=== PATIENT | male | born 1960 | race Caucasian/White ===

== ENCOUNTER → 2020-10-03 10:08 | Outpatient (CLI) | payer OTHER, SELFPAY ==
--- NOTE | 2020-10-03 13:44 | NEURO ---
NCS and/or EMG Patient Report Ordering Doctor: Brinda Solares NP DATE OF SERVICE: 10/03/20 Abdullahi Willis presents for electrodiagnostic testing of the upper limbs. He reports occasional numbness and tingling in the arms. Electrodiagnostic findings: Right median motor nerve demonstrates prolonged distal latency with normal amplitude and reduced conduction velocity. Left median motor nerve demonstrates normal distal latency, amplitude and conduction velocity. Right ulnar motor nerve demonstrates normal distal latency and amplitude with normal conduction. Normal left ulnar motor response. Normal median and ulnar F waves. Prolonged median sensory latency at the wrist bilaterally. On needle EMG, all muscles tested in the upper limb showed no evidence of denervation with normal motor unit action potentials. Electrodiagnostic assessment: This is an abnormal study in the upper limbs. 1. Electrodiagnostic findings demonstrate bilateral median mononeuropathy. This is consistent with a mild left carpal tunnel syndrome and a mild to moderate right carpal tunnel syndrome. If there are any further questions, please do not hesitate to contact me
== END ==
PROVIDERS: PCP Nurse Practitioner; Referring Provider Nurse Practitioner; Visit Provider Nurse Practitioner
DX: R20.2 Paresthesia of skin (principal)
CPT/HCPCS: 95886; 95913

== ENCOUNTER 2021-11-21 06:58 | Outpatient (RCR) | payer BC, SELFPAY ==
--- NOTE | 2021-11-21 08:00 | HP.PTEVAL_ITS ---
Patient's Visit Information SIERRA PATEL is a 61 year old M referred to Physical Therapy by [facility] Jhaveri with a diagnosis of Left Knee Pain. Date of Evaluation: 11/21/21 Physical Therapist: Josy Nuno DPT - Visit Plan Frequency: 1x/Week Duration: 4 Weeks Plan: Focus on HEP for flexibility, LE and core strength/stabilization and flex- mod of e-stim and. HEP Given IE: TKE, Heel slide, SLR, Hamstring Stretch - Subjective Patient reports that he was walking in the yard on Thursday- he stepped in a hole- big pop and has had medial knee pain. Feels its getting better with ice and Ibuprofen- compression sleeve. No radiating pain. Describes the pain now as dull and achy. No N/T. Worst: 9/10 Agg: turning the knee, getting up after sitting for a long period of time. Best: 0/10 Eases: ice, ibuprofen, compression sleeve, keeping moving. Sleep: wakes him up if he lays on it wrong. 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 He has managed to continue his ADL's but its been slower and more challenging. No exercise. Had x-rays which were negative. No medication or injections. Has an apt to see Dr. Smart next week. PMHx: HTN. Meds: amlodipine - Objective Posture: FH, RS- can correct with verbal cues but does not maintain. Gait: slightly antalgic decrease heel strike on left with ER of the hip Stairs: asc/desc 8 recip with a single hand rail- poor control with decent- not smooth with ascend HR SLS: 15 sec with increased muscular activation HR/TR: able without LOB and no pain. Sensation: WFL to gross touch bilateral. ROM: Knee: 0- 120 degrees with pain at end range flexion. Strength: Core: fair plus, Hip: 4+/5, Knee: 4+/5 pain testing flexion Ankle: 5/5. Flex: HS: mod, Gastroc: mod. Palpation: tender to medial joint line - Special Tests R Knee Edgar - Meniscus: Positive R Knee Valgus - MCL: Positive - Goals Goal 1:: Patient will be I with HEP and progression Goal Time Frame: 4-6 Weeks Goal 2:: Patient will ambulate >300 feet with a normalized gait pattern Goal Time Frame: 4-6 Weeks Goal 3:: Patient will return to all normal ADL's without pain Goal Time Frame: 4-6 Weeks - Rehabilitation Potential Physical Therapy Diagnosis: Patient presents with hypomobility- he has decreased pain free ROM, LE and core strength/stabilization, flex and muscular endurance leading to abnormal gait and increased pain with ADL's - Anticipated Interventions Patient/Client Instruction: Educate patient on: Benefits of Fitness Program Therapeutic Exercise to Include: Strength training, Endurance training, Balance training, Coordination, Agility training, Body mechanics, Postural training, Flexibilty training, Gait and locomotor training, Neuromotor development, Dynamic Lumbar Stabilization, Scapular Strength/Stabilization For the Purpose of:: To improve muscle performance and motor function TENS: Yes Cryotherapy (ice pack, ice massage): Yes Thermo therapy (hot pack): Yes Ultrasound (thermal/non thermal): Yes Thank you for the opportunity to evaluate your patient. For Medicare and Medicare HMO plans, please review the plan of care and approve it. It will need to be FAXED BACK to us at [phone] for Medicare purposes. For Medicare only, by signing this I certify the plan of care. Please let me know if there are questions or concerns regarding this plan of care. Physician Signature: Date:
--- NOTE | 2022-04-17 16:15 | HP.PT.NRP ---
SIERRA PATEL was seen in my office for initial evaluation on 11/21/21. The following Plan of Care was established for this patient: Initial Frequency: 1x/Week Initial Duration: 4 Weeks Patient/Client Instruction: Educate patient on: Benefits of Fitness Program Therapeutic Exercise to Include: Strength training, Endurance training, Balance training, Coordination, Agility training, Body mechanics, Postural training, Flexibilty training, Gait and locomotor training, Neuromotor development, Dynamic Lumbar Stabilization, Scapular Strength/Stabilization For the Purpose of:: To improve muscle performance and motor function TENS: Yes Cryotherapy (ice pack, ice massage): Yes Thermo therapy (hot pack): Yes Ultrasound (thermal/non thermal): Yes This patient was last seen in our office . Pertinent comments regarding their Physical therapy will appear below: Patient has not attended PT in over 30 days- appropriate to be d/c and return to MD for further evaluation as needed. At this point I will be discontinuing this patient from physical therapy. I would be happy to see this patient again in the future if found appropriate by the physician. Thank you! RAYMOND FabianT
== END 2021-11-21 19:00 | disposition home or self-care (01) ==
LOC: PT 06:58
PROVIDERS: PCP Nurse Practitioner; Referring Provider Nurse Practitioner; Visit Provider Nurse Practitioner
DX: M25.562 Pain in left knee (principal)
CPT/HCPCS: 97014; 97161; G0283

== ENCOUNTER 2022-08-21 04:54 | Observation (INO) | payer BC, SELFPAY ==
[2022-08-21] VITALS (13 sets, daily range): BP systolic 132–186; BP diastolic 81–111; PULSE 64–92; RESP 16–21; TEMP 36.4–36.8; O2SAT 94–98; BMI 35.9; BMI 35.5
--- NOTE | 2022-08-21 05:13 | CT_ITS ---
INDICATION: 61-year-old male with possible aortic dissection. EXAMINATION: CTA CHEST, ABDOMEN AND PELVIS WITH CONTRAST - TECHNIQUE: A CTA of the chest, abdomen, and pelvis is obtained with sagittal and coronal reconstructed MIP views. Three-dimensional surface rendered sequence of the thoracic and abdominal aorta was obtained. A radiation dose optimization technique was used for this scan. 100 mL of Isovue-370. Oral contrast: None. COMPARISON: None. FINDINGS: CT CHEST: THORACIC AORTA: No atheromatous disease, no aneurysmal changes or dissection. ABDOMINAL AORTA: No aneurysm or dissection. No significant atheromatous disease. The iliac arteries are unremarkable. Patent origins of the celiac axis, superior mesenteric artery, single bilateral renal arteries and inferior mesenteric artery. LUNGS: The lungs are well-expanded without acute or chronic changes. No effusions or pneumothorax. MEDIASTINUM: The thyroid gland is normal. No mediastinal or hilar adenopathy. HEART: Heart is normal size. No pericardial effusion. No coronary artery calcifications. CT ABDOMEN AND PELVIS: LIVER: The liver enhances homogeneously. No masses identified. GALLBLADDER: The CBD is normal. Scattered small gallstones. SPLEEN: Normal. PANCREAS: No masses or inflammation. ADRENAL GLANDS: Normal. KIDNEYS AND URETERS: The kidneys both enhance appropriately. There are normal size and shape. No hydronephrosis or nephrolithiasis. No renal masses or cysts. STOMACH: Normal. SMALL BOWEL: No abnormal distention of the small bowel. MESENTERY: No mesenteric inflammation. No ascites. COLON: No significant diverticulosis, masses or inflammation. The colon otherwise is normal. APPENDIX: The appendix is visualized and normal. IVC: Normal. RETROPERITONEUM: No retroperitoneal lymphadenopathy. PELVIC STRUCTURES: Normal bladder. SOFT TISSUES ABDOMEN: The anterior abdominal wall is normal. SOFT TISSUE CHEST: The extrathoracic soft tissues are normal. BONES: No fractures or significant degenerative disease. CT/CTA Chst, Abd, Pel W and/or WO IMPRESSION: Normal contrast-enhanced CT of the chest. Normal contrast-enhanced CT of the abdomen and pelvis. No evidence of thoracic or abdominal aortic dissection. Electronically Signed: Magdaleno Snyder MD at 6:27 EDT Reading Location ID and State: [place] / , Service support ,
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
[2022-08-21] MEDS: Aspirin 81 MG TAB.CHEW 324 MG PO (05:21)
[2022-08-21] MEDS: 0.9% Normal Saline 1,000 ML 999 ML IV (05:21)
[2022-08-21 05:23] LABS: Absolute Lymphocyte Count 1.25 X10^3/uL (0.83-4.51); Absolute Neutrophil Count 6.5 X10^3/uL (2.0-7.7); Basophil# 0.06 X10^3/uL; Basophil% 0.7 % (0-1); Eosinophils% 1.2 % (0-5); Hematocrit 46.6 % (40-54); Hemoglobin 15.8 g/dL (13.0-16.5); Lymphocyte # 1.25 X10^3/ul (0.83-4.51); Lymphocyte % 14.7 % (19-41); Mean Corp Hgb Conc 33.9 g/dL (32-36); Mean Corpuscular Hgb 31.6 pg (27.0-32.0); Mean Corpuscular Volume 93.2 fL (80-94); Mean Platelet Vol. 10.8 fl (6.2-12.0); Monocyte# 0.59 X10^3/uL; Monocyte% 6.9 % (0-10); NRBC Flagged by Analyzer 0 % (0-5); Neutrophil # 6.45 X10^3/uL (2.7-7.7); Neutrophil % 75.9 % (47-70); Platelet Count 188 K/mm3 (150-450); RBC Distribution Width CV 12.9 % (11.6-14.6); RBC Distribution Width SD 44.1 fl (35.1-43.9); White Blood Count 8.5 K/mm3 (4.4-11.0)
[2022-08-21] MEDS: Nitroglycerin SL (ED/IMG/CATH) 0.4 MG TABLET SL ×3 (05:23→05:39)
--- NOTE | 2022-08-21 05:24 | ED.RN ---
in the middle of doing nitro series, wants pt to cat scan now.pt went to ct scan.
[2022-08-21 05:44] LABS: Prothrombin Time (Protime)PT. 12.7 SECONDS (11.7-14.9)
[2022-08-21 05:45] LABS: AST(SGOT) 20 U/L (15-37); Alanine Aminotransfer ALT/SGPT 30 U/L (16-61); Albumin, Serum 4.1 g/dL (3.2-5.0); Alkaline Phosphatase 65 U/L (45-117); Anion Gap 7 (5-15); BUN 17 mg/dL (7-18); BUN/Creat Ratio 18.2 RATIO (10-20); Bilirubin, Direct 0.12 mg/dL (0.00-0.30); Calcium,Total 9.4 mg/dL (8.5-10.1); Chloride 107 mmol/L (98-107); Creatinine, Serum 0.93 mg/dL (0.70-1.30); EST Glomerular Filtration Rate 87 mL/min (>60); Est Glom Filt Rate - Afr Amer 106 mL/min (>60); Estimated Creatinine Clearance 91.55 ml/min; Globulin 3.9 g/dL (2.2-4.2); Glucose 133 mg/dL (74-106); Lipase 98 U/L (73-393); Magnesium 2.1 mg/dL (1.6-2.6); Sodium Level 139 mmol/L (136-145); Troponin-I HS 4 pg/mL (3.0-78.0)
[2022-08-21] MEDS: Ondansetron 4 MG/2 ML Vial IV (05:59)
[2022-08-21] MEDS: HYDROmorphone 1 MG/ML Syringe IV (05:59)
--- NOTE | 2022-08-21 06:52 | US_ITS ---
We are attempting to reach an attending provider to discuss findings. An addendum with communication details will be sent when the communication is complete. STUDY: ABDOMINAL ULTRASOUND - RIGHT UPPER QUADRANT REASON FOR VISIT: Male, 61 years old right quadrant pain. TECHNIQUE: Ultrasound evaluation of the right upper quadrant was performed with real-time and static miramontes-scale imaging. TECHNICAL QUALITY: Adequate. COMPARISON: CT chest, abdomen and pelvis August 21, 2022. FINDINGS: Liver: The liver measures 10.2 cm. There is increased echogenicity consistent with fatty infiltration. The bile ducts are within normal limits. There is hepatic color flow. The direction of portal flow is hepatopetal. There is no demonstrated mass lesion. Gallbladder: Normal distended gallbladder. The gallbladder wall measures 5 mm. There is a negative sonographic Levine''s sign. There is trace pericholecystic fluid as per the player manager worksheet. There are multiple echogenic structures within the gallbladder, consistent with multiple gallstones. Common Bile Duct (C.B.D.): The common bile duct measures 5 mm. Pancreas: Pancreas not well-visualized due to overlying bowel gas. Right Kidney: Normal size of the right kidney. The right kidney measures 12.7 cm. Normal renal cortex. The right cortex measures 2 cm. There is no demonstrated renal mass or cyst. There is no right hydronephrosis. US/Gallbladder IMPRESSION: Cholelithiasis, gallbladder wall thickening and trace pericholecystic fluid. These findings suggest acute cholecystitis in the proper clinical setting. Pancreas not well-visualized. Electronically Signed: Magdaleno Snyder MD at 7:48 EDT Reading Location ID and State: [id number] / , Service support ,
[2022-08-21 07:42] LABS: Troponin-I HS 5 pg/mL (3.0-78.0)
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
[2022-08-21] MEDS: Ciprofloxacin 400 MG/200 ML BAG 200 MG IV ×2 (08:46→21:18)
[2022-08-21] MEDS: metroNIDAZOLE 500 MG/100 ML BAG 100 MG IV ×3 (10:17→21:17)
[2022-08-21] MEDS: 0.9% Normal Saline 1,000 ML 120 ML IV ×2 (10:19→21:25)
[2022-08-21] MEDS: amLODIPine 5 MG Tablet PO (21:17)
[2022-08-22] VITALS (16 sets, daily range): BP systolic 129–150; BP diastolic 74–100; PULSE 67–97; RESP 16–18; TEMP 36.5–37.2; O2SAT 92–97; BMI 35.5
[2022-08-22 04:55] LABS: Absolute Lymphocyte Count 1.36 X10^3/uL (0.83-4.51); Absolute Neutrophil Count 6.1 X10^3/uL (2.0-7.7); Basophil# 0.07 X10^3/uL; Basophil% 0.8 % (0-1); Eosinophil# 0.27 X10^3/uL; Eosinophils% 3.1 % (0-5); Hematocrit 43.2 % (40-54); Hemoglobin 14.4 g/dL (13.0-16.5); Lymphocyte # 1.36 X10^3/ul (0.83-4.51); Lymphocyte % 15.7 % (19-41); Mean Corp Hgb Conc 33.3 g/dL (32-36); Mean Corpuscular Hgb 31.9 pg (27.0-32.0); Mean Corpuscular Volume 95.6 fL (80-94); Mean Platelet Vol. 10.4 fl (6.2-12.0); Monocyte# 0.85 X10^3/uL; Monocyte% 9.8 % (0-10); NRBC Flagged by Analyzer 0 % (0-5); Neutrophil # 6.06 X10^3/uL (2.7-7.7); Platelet Count 166 K/mm3 (150-450); RBC Distribution Width CV 13.1 % (11.6-14.6); RBC Distribution Width SD 46.3 fl (35.1-43.9); Red Blood Count 4.52 M/mm3 (4.6-6.2); White Blood Count 8.7 K/mm3 (4.4-11.0)
[2022-08-22 05:22] LABS: AST(SGOT) 14 U/L (15-37); Alanine Aminotransfer ALT/SGPT 26 U/L (16-61); Albumin, Serum 3.1 g/dL (3.2-5.0); Alkaline Phosphatase 53 U/L (45-117); Anion Gap 3 (5-15); BUN 9 mg/dL (7-18); BUN/Creat Ratio 10.4 RATIO (10-20); Bilirubin, Direct 0.15 mg/dL (0.00-0.30); Calcium,Total 8.2 mg/dL (8.5-10.1); Chloride 110 mmol/L (98-107); Creatinine, Serum 0.86 mg/dL (0.70-1.30); EST Glomerular Filtration Rate 95 mL/min (>60); Est Glom Filt Rate - Afr Amer 115 mL/min (>60); Estimated Creatinine Clearance 99.01 ml/min; Globulin 3.3 g/dL (2.2-4.2); Glucose 105 mg/dL (74-106); Potassium 4.2 mmol/L (3.5-5.1); Protein, Total 6.4 g/dL (6.4-8.2); Sodium Level 139 mmol/L (136-145)
--- NOTE | 2022-08-22 05:37 | EKG12_ITS ---
Test Reason : pre-procedure Blood Pressure : / mmHG Vent. Rate : 069 BPM Atrial Rate : 069 BPM P-R Int : 144 ms QRS Dur : 082 ms QT Int : 378 ms P-R-T Axes : 005 010 032 degrees QTc Int : 405 ms Normal sinus rhythm Normal ECG When compared with ECG of 21-AUG-2022 04:55, MANUAL COMPARISON REQUIRED, DATA IS UNCONFIRMED Confirmed by MARIA ANTONIA ACOSTA, JACKIE ([id number]), editor news LUCIEN MONAHAN ([id number]) on 08/25/2022 2:09:28 PM Referred By: Confirmed By:JACKIE EM MD
[2022-08-22] MEDS: metroNIDAZOLE 500 MG/100 ML BAG 100 MG IV (05:52)
--- NOTE | 2022-08-22 05:55 | EKG12_ITS ---
Test Reason : cp Blood Pressure : / mmHG Vent. Rate : 075 BPM Atrial Rate : 093 BPM P-R Int : 160 ms QRS Dur : 082 ms QT Int : 378 ms P-R-T Axes : 053 013 039 degrees QTc Int : 422 ms Sinus rhythm with marked sinus arrhythmia Otherwise normal ECG Confirmed by LOLITA ACOSTA, JHON ([id number]), make up editor LUCIEN MONAHAN ([id number]) on 08/25/2022 9:38:27 AM Referred By: Confirmed By:JHON MCHUGH MD
[2022-08-22] MEDS: 0.9% Normal Saline 1,000 ML 120 ML IV ×2 (07:26→14:44)
[2022-08-22] MEDS: 0.9% Normal Saline 1,000 ML 15 ML IV (09:09)
--- NOTE | 2022-08-22 09:45 | GALL_PTH ---
PATIENT: TROY PATEL LOC: PCU U#:[id number] AGE/SX: 61/M ROOM: [facility] RE08/21/[address]: Dr. Zunilda Anaya MD : [id number] BED: 1 DIS: 08/22/2022 SPEC #: [id number] RECD: 08/22/22 13:07 STATUS: CLIVE JASSI #: [id number] POP: 08/22/22 09:[address]: Zunilda Anaya DEPT: SURGICAL PATHOLOGY RECD BY: Shasha Kasper Tissues: Gallbladder, NOS Procedures: Surgery Specimen Level III HEADER OPERATION: Laparoscopic cholecystectomy with IOC PRE-OP DIAGNOSIS: Acute cholecystitis, cholelithiasis TISSUE SUBMITTED: Gallbladder MICROSCOPIC DIAGNOSIS Gallbladder, cholecystectomy: Acute and chronic cholecystitis with denudation of mucosa and cholelithiasis. AM:ravin 08/26/2022 MICROSCOPIC DESCRIPTION Slides are reviewed. GROSS DESCRIPTION Received is one container labeled with the patient's name and designated gallbladder. The specimen consists of a previously opened gallbladder measuring 8.5 x 4.5 x 2 cm. The external surface is smooth and glistening. Focally, it is granular, hemorrhagic and contains cautery artifact. The lumen of the gallbladder contains yellow-green mucoid bile and multiple chalky yellow, multifaceted calculi ranging in size from 0.1 to 1.2 cm. The mucosa is bile-stained and without any mass lesions. The gallbladder wall averages 0.2 cm in thickness and is free of mass lesions. Crochet Beader sections of the gallbladder and the cystic duct at margin of resection are submitted in one cassette. / AM:ravin 08/25/2022 TC:2 CPT: 22159
--- NOTE | 2022-08-22 09:45 | RAD_ITS ---
CLINICAL HISTORY: Male, 61 years old. Cholecystectomy PROCEDURE: CHOLANGIOGRAM - intraoperative CONSENT: Informed consent obtained SEDATION: General FLUOROSCOPY TIME (if supplied): (0:07) minutes/seconds Placement of the catheter and the procedure were performed by: Dr. Anaya Fluoroscopy was provided by Jeff Velasquez, who was present in the room time of the procedure. TECHNIQUE: (All elements of maximal sterile barrier technique followed, including US elements as applicable) After removal of the gallbladder, the cystic duct remnant was cannulized, and contrast injected in a retrograde manner. There is normal filling of the cystic duct, common bile duct, distal pancreatic duct and biliary radicles. There is free flow of contrast into the duodenum without extravasation of contrast outside the lumen of the biliary tree. RAD/Cholangiogram/ O R,Initial IMPRESSION: Normal intraoperative cholangiogram Electronically Signed: Ankit Maldonado MD at 11:02 EDT ,
[2022-08-22] MEDS: Ciprofloxacin 400 MG/200 ML BAG 200 MG IV (10:05)
[2022-08-22] MEDS: Bupivacaine 0.25% 30 ML Vial (11:15)
--- NOTE | 2022-08-22 11:23 | PCM.OPRPT ---
Report of Operation Date of Procedure: 08/22/22 Pre-Operative Diagnosis: Acute cholecystitis, cholelithiasis Post-Operative Diagnosis: Same Surgery/Procedure Performed:: Laparoscopic cholecystectomy with cholangiograms Surgeon: Zunilda Anaya drawer in plain loom: Nigel Purvis Type of Anesthesia: General/Supplemental Anesthesiologist: Brad Wu Special Medications: Cipro 400 mg IV every 12, Flagyl 500 mg IV every 8 for acute cholecystitis on the floor Specimen's removed: Gallbladder and stones Estimated Blood Loss (mL): 20 cc Description of Procedure: Indications: this is a 61 year-old male who developed abdominal pain/nausea/vomiting and on workup was found to have acute cholecystitis, cholelithiasis, with a normal common bile duct. Laparoscopic cholecystectomy was elected. Description procedure: The patient was placed on operating table in supine position. A timeout was completed verifying correct patient, procedure, site, position and special equipment prior to beginning procedure. General Anesthesia was induced. The abdomen was prepped and draped in usual sterile fashion. An incision was made in the natural skin line above the umbilicus. The fascia was elevated and incised. The peritoneum was elevated and incised. Entry into the peritoneum was confirmed visually and no bowel was noted in the vicinity of the incision. Polanco trocar was placed. The abdomen was insufflated with carbon dioxide to a pressure of 12-15 mmHg. Patient tolerated insufflation well. The laparoscope was then inserted and abdomen inspected. No injuries from initial trocar placement were noted. Additional trochars were then inserted in the following locations 5 mm trocar in the epigastrium and 2 more 5 mm trochars along the right costal margin. The abdomen was inspected, the gallbladder was underneath an adhesion of omentum. The table is placed in reverse Trendelenburg position with the right side up. The adhesions between the gallbladder and omentum were lysed sharply. The dome of the gallbladder was grasped with atraumatic grasper passed through the lateral port and retracted over the dome of the liver. The gallbladder was noted to be inflamed. Infundibulum was then grasped with atraumatic grasper through the midclavicular port and retracted to the right lower quadrant. This maneuver exposed Calot's triangle. The peritoneum overlying the gallbladder infundibulum was then incised and cystic duct and artery identified and circumferentially dissected. Brown catheter was used for cholangiograms. The cholangiogram showed good filling of the common bile duct into the duodenum with no filling defects, good filling of the right and left bile ducts as well. The cystic duct and artery were then doubly clipped and divided close to the gallbladder. The gallbladder then dissected from its peritoneal attachments by electrocautery. Hemostasis was checked and the gallbladder and contained stones were removed using the endoscopic retrieval bag through the umbilical port, which required slight enlargement to remove due to gallstones. The gallbladder is passed off table as specimen. The gallbladder fossa was irrigated with saline and hemostasis obtained. There is no evidence of bleeding from the gallbladder fossa or cystic artery leakage of bile from the cystic duct stump. Secondary trochars removed under direct vision. No bleeding was noted the trocar sites. The laparoscope was withdrawn and umbilical trocar removed. The abdomen was allowed to collapse. The fascia of the 12 mm trocar was closed with 2 [id number]-bq-[id number] 0 Vicryl suture. The skin was closed with sutures of 4-0 Monocryl and Steri-Strips. The patient was extubated. The patient tolerated procedure well and was taken to the postanesthesia care unit in stable condition. Complications none
--- NOTE | 2022-08-22 11:27 | DCINST_ITS ---
Discharge Instructions Diet Discharge Diet: Light diet - advance as tolerated Activity Discharge Activity: May Not Drive (while taking narcotic pain medications.) May shower in (days): 1 Lifting Restrictions: no lifting >20 lbs x 2 wks, no strenuous exercise for 4 wks Dressing / Incision Call your doctor if your incision/area has: Continuous Slow Oozing, Sudden Increased Bleeding, Increased Pain/ Swelling, Increased Redness, Foul Smelling Discharge and Swelling at the incision site Call your doctor if you observe: Fever of 101 or Higher Remove Dressing in: 2 days Cleanse incision/area with: Soap & Water Additional Dressing/Incision Instructions:: Steri-Strips will fall off in 7 to 10 days, if they do not fall off okay to remove after 10 days. Follow Up Care Please Follow Up With: Zunilda Anaya MD When: Call the office for a follow-up appointment 2 weeks; after 5 PM and on the weekends call [phone] with any concerns. Test Results: Test results from this visit will be discussed in further detail at your follow- up appointment, if applicable. Discharge Plan Admission Admit Date/Time: 08/21/22 08:15 Attending Provider: Zunilda Anaya Primary Care Provider: TODD FLOYD Discharge Orders/Prescriptions Prescriptions: New oxycodone-acetaminophen [Percocet] 5-325 mg tablet 1 tab PO Q6H PRN (Reason: pain) 3 Days Qty: 12 0RF ondansetron 4 mg tablet,disintegrating 4 mg PO TID PRN (Reason: nausea and vomiting) Qty: 21 0RF Continued amlodipine 5 mg tablet 5 mg PO DAILY Referrals / Follow Up: TODD FLOYD [Other] Brinda Solares PERSONAL COMPUTER NETWORK ANALYST, PERSONAL COMPUTER NETWORK ANALYST-C [Non-Staff] - Zunilda Anaya MD [Med Staff - Active Staff] - Disposition Disposition (needs filled in before D/C Order can be placed): Home, Self Care
[2022-08-22] MEDS: Pantoprazole Sodium 40 MG Tablet PO (14:43)
--- NOTE | 2022-08-22 16:02 | NURSING ---
Pt up and voided in toilet and ambulated in room without difficulty.
[2022-08-22] MEDS: Acetaminophen 325 MG Tablet 650 MG PO (16:24)
== END 2022-08-22 11:28 | disposition home or self-care (01) ==
LOC: ED 08:28 → PCU 08:29
PROVIDERS: Admitting Provider Surgery; Emergency Provider Emergency Medicine; Visit Provider Surgery
PROC: (CPT 47610; principal; 2022-08-22 09:25)
DX: K80.12 Calculus of gallbladder with acute and chronic cholecystitis without obstruction (principal); I10 Essential (primary) hypertension; Z79.899 Other long term (current) drug therapy; I49.8 Other specified cardiac arrhythmias; R07.89 Other chest pain; M54.9 Dorsalgia, unspecified
CPT/HCPCS: 47563; 36415; 71275; 74174; 74300; 76000; 76705; 80048; 80076; 83690; 83735; 84484; 85025; 85610; 85730; 86850; 86870; 86880; 86900; 86901; 88304; 93005; 96361; 96365; 96366; 96368; 96375; 99218; 99251; 99285; J7030; A4216; G0378; G0463; J0744; J2405

== ENCOUNTER → 2024-09-26 | Outpatient (CLI) | payer BC, SELFPAY | END | disposition home or self-care (01) | PROVIDERS: PCP Nurse Practitioner Family; Referring Provider Nurse Practitioner Family; Visit Provider Nurse Practitioner Family | DX: R06.83 Snoring (principal) | CPT/HCPCS: 95806 ==

== ENCOUNTER → 2024-10-28 | Outpatient (CLI) | payer BC, SELFPAY ==
--- NOTE | 2024-10-28 06:51 | CT_ITS ---
EXAM: CT CHEST WITHOUT INTRAVENOUS CONTRAST CLINICAL INDICATION: greater than 20 pack yr history, quit 5 years ago TECHNIQUE: Helically acquired images were obtained of the chest without intravenous contrast. This CT exam was performed using one or more of the following dose reduction techniques: automated exposure control, adjustment of the mA and/or kV according to patient size, and/or use of iterative reconstruction technique. RADIATION DOSE: CTDIvol = 4.02 mGy, DLP = 157.03 mGy-cm COMPARISON: CTA chest abdomen pelvis 08/21/2022. FINDINGS: LUNGS AND PLEURAL SPACES: Unremarkable. No mass. No consolidation or edema. No pleural effusion or thickening. No pneumothorax. HEART: Unremarkable. Heart size is normal. No pericardial effusion. No significant coronary artery calcifications. MEDIASTINUM: Unremarkable. No mediastinal or hilar adenopathy. Esophagus is unremarkable. No hiatal hernia. THYROID: There is a 3 cm nodule arising from the lower pole of the right thyroid gland. BONES/JOINTS: Unremarkable. No suspicious lytic or blastic abnormality. VASCULATURE: Unremarkable. Thoracic aorta is non-dilated. CT/Low Dose CT Lung Screening IMPRESSION: 1. There is a 3 cm nodule arising from the lower pole of the right thyroid gland. ACR White Paper guidelines (Montero JK, et al. JACR 2015;12(2):143-50) suggest further evaluation with thyroid ultrasound. 2. Otherwise unremarkable low-dose CT of the chest, no pulmonary nodules. ACR Lung CT Screening Reporting And Data System (Lung-RADS) score: 1S - Additional clinically significant or potentially clinically significant findings are described. Recommend continued annual screening with a low-dose CT (LDCT) in 12 months. Electronically Signed: Rodney Morfin MD at 16:29 EST ,
== END | disposition home or self-care (01) ==
PROVIDERS: PCP Nurse Practitioner Family; Referring Provider Nurse Practitioner Family; Visit Provider Nurse Practitioner Family
DX: Z87.891 Personal history of nicotine dependence (principal)
CPT/HCPCS: 71271

== ENCOUNTER → 2024-11-12 | Outpatient (CLI) | payer BC, SELFPAY ==
--- NOTE | 2024-11-12 07:47 | US_ITS ---
EXAM: US SOFT TISSUES HEAD AND NECK, THYROID CLINICAL INDICATION: 3 cm nodule seen LDCT -- thyroid US TECHNIQUE: Hernandez scale and color doppler imaging was performed of the thyroid gland. COMPARISON: No relevant prior studies available. FINDINGS: LEFT THYROID LOBE: Left thyroid lobe measures 5.7 x 2.3 x 1.8 cm. Multinodular appearance. Dominant central 2.4 cm nodule. This nodule is solid or almost completely solid, hyperechoic or isoechoic, [id number], smoothly marginated and contains no echogenic foci. TI-RADS points: 3. TI-RADS category: TR3. This nodule is mildly suspicious. Recommend follow-up thyroid ultrasounds in one year. Several similar smaller nodules are noted within the left thyroid lobe. RIGHT THYROID LOBE: Right thyroid lobe measures 8.1 x 2.8 x 3.2 cm. Multinodular echotexture. Dominant nodule measuring 2.2 cm in maximum diameter. This nodule is solid or almost completely solid, hyperechoic or isoechoic, [id number], smoothly marginated and contains no echogenic foci. TI-RADS points: 3. TI-RADS category: TR3. This nodule is mildly suspicious. Recommend follow-up thyroid ultrasounds at 1 year. Incompletely visualized additional nodule arises from the lower pole of the right thyroid lobe measuring at least 3.3 cm diameter and having similar appearance to the prior nodule. TI-RADS points: 3. TI-RADS category: TR3. This nodule is mildly suspicious. Recommend FNA evaluation. ISTHMUS: Normal. No thyroid nodules are present. US/Thyroid IMPRESSION: Findings consistent with multinodular goiter. Dominant lesion arising from the lower pole of the right thyroid lobe warrants FNA due to its of large size. Electronically Signed: Galo Gracia MD at 13:44 EST ,
== END | disposition home or self-care (01) ==
LOC: US 07:45
PROVIDERS: PCP Nurse Practitioner Family; Referring Provider Nurse Practitioner Family; Visit Provider Nurse Practitioner Family
DX: E04.1 Nontoxic single thyroid nodule (principal)
CPT/HCPCS: 76536

== ENCOUNTER → 2025-02-24 | Outpatient (CLI) | payer BC, SELFPAY | END | disposition home or self-care (01) | LOC: LABSPEC 12:15 | PROVIDERS: PCP Nurse Practitioner Family; Referring Provider Nurse Practitioner Family; Visit Provider Nurse Practitioner Family | DX: E87.5 Hyperkalemia (principal) | CPT/HCPCS: 84132 ==

== ENCOUNTER → 2025-10-30 | Outpatient (CLI) | payer MEDICARE, OTHER, SELFPAY ==
--- NOTE | 2025-10-30 07:14 | CT_ITS ---
PROCEDURE: LOW DOSE CT LUNG SCREENING 10/30/2025 REASON FOR EXAM: PREVIOUS SMOKER TECHNIQUE: Procedure Code: [id number] Modality: CT Procedure: LOW DOSE CT LUNG SCREENING Coronal and Sagittal reconstruction series were provided. One or more dose reduction techniques were used (e.g., Automated exposure control, adjustment of the mA and/or kV according to patient size, use of iterative reconstruction technique). REFERENCE LINK: [employer] Lung-RADS RADIATION DOSE SUMMARY: DLP: 1117.39 mGycm COMPARISON: Low-dose CT lung screening 10/28/2024 FINDINGS: PULMONARY NODULES: (Only nodules >3mm are reported) Nodules described below are on series 2 unless otherwise specified. Pulmonary Nodules: No suspicious pulmonary nodules Hardware:None available Lymph Nodes:No lymphadenopathy. Heart and Vasculature:The heart is normal in size.The main pulmonary artery and thoracic aorta normal in caliber. Coronary Artery Calcifications: Present Lungs and Airways: Mild dependent atelectasis. The central airways are patent. Pleura:No pneumothorax or pleural effusion. Upper Abdomen:Unremarkable. Bones:No aggressive osseous lesion. Degenerative changes in the thoracic spine. Soft tissues: Asymmetrically enlarged right thyroid gland appears to extend to mediastinum. CT/Low Dose CT Lung Screening IMPRESSION: No suspicious pulmonary nodules. Coronary artery calcification (CAC) is absent. Lung-RADS Category: 1 NEGATIVE. RECOMMEND 12-MONTH SCREENING LDCT. Other Significant Findings: Asymmetrically enlarged right thyroid gland. If no t already evaluated, recommend thyroid ultrasound for further evaluation. Reading Location: [id number]
--- OUTSIDE RECORDS SUMMARY | 2025-10-30 07:19 | XMS RPT_ITS | CCD ---
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 ERFORMED BY: CB [facility] Zndyrp[address] [facility]in [place] [id number] PSA TOTAL (RFLX FREE) [id number] ([id number])Ordered By: Unit Operator on 08-13-2023 Prostate specific Ag [Mass/Vol] 1.3 ng/mL Normal 0.0-4.0 [facility] Internal Medicine; [facility] Work Phone: Comment on above: Julia ECLIA methodol ogy. .According to the [place] [employer], Serum PSA shoulddecrease and remain at undetectable levels after radicalprostatectomy. The AUA defines biochemical recurrence as an initialPSA value 0.2 ng/mL or greater followed by a subsequent confirmatoryPSA value 0.2 ng/mL or greater.Values obtained with different assay methods or kits cannot be usedinterchangeably. Results cannot be interpreted as absolute evidenceof the presence or absence of malignant disease. PATIENT WAS FASTINGP ERFORMED BY: Rethink Fwiqfg1839 [facility] [id number] PSA TOTAL (RFLX FREE) [id number] ([id number]) [facility] Normal [facility]; [facility] Work Phone: Comment on above: The percent free PSA is performed on a reflex basis only when thetotal PSA is between 4.0 and 10.0 ng/mL. PATIENT WAS FASTINGP ERFORMED BY: Rethink Jgwvzq9118 [facility] [id number] Absolute lymphocyte counton 08-22-2022 Lymphocytes Auto (Unsp spec) [#/Vol] 1.36 10*3/uL 0.83-4.51 [facility] Work Phone: Basophil percentageon 2021 Basophils/100 WBC (Bld) 0.8 % 0-1 [facility] Work Phone: Bilirubin [Mass/Vol] 0.80 mg/dL 0.20-1.00 [facility] Work Phone: Comment on above: For patients on eltr ombopag therapy, use of Dimension [place] TBIL is not recommended. Chloride [Moles/Vol] 110 mmol/L 98-107 [facility] Work Phone: Eosinophils/100 WBC (Bld) 3.1 % 0-5 [facility] Work Phone: Glucose [Mass/Vol] 105 mg/dL 74-106 [facility] Work Phone: Comment on above: Fasting Glucose resu lt from 100 to 125 mg/dL suggests IMPAIRED HOMEOSTASIS per A.D.A. criteria. Neutrophils (Bld) [#/Vol] 6.1 10*3/uL 2.0-7.7 [facility] Work Phone: Neutrophils/100 WBC (Bld) 70.0 % 47-70 [facility] Work Phone: Potassium [Moles/Vol] 4.2 mmol/L 3.5-5.1 [facility] Work [facility]: Protein [Mass/Vol] 6.4 g/dL 6.4-8.2 [facility] Work Phone: Sodium [Moles/Vol] 139 mmol/L 136-145 [facility] Work Phone: WBC (Bld) [#/Vol] 8.7 10*3/uL 4.4-11.0 [facility] Work Phone: Blood erythrocytes count (nu mber/volume)on 08-22-2022 RBC (Bld) [#/Vol] 4.52 10*6/uL 4.6-6.2 [facility]: Blood hemoglobin measurement (mass/volume)on 08-22-2022 Hemoglobin (Bld) [Mass/Vol] 14.4 g/dL 13.0-16.5 [facility] Work Phone: Blood lymphocytes/100 leukoc yteson 08-22-2022 Lymphocytes/100 WBC (Bld) 15.7 % 19-41 [facility] Work Phone: Blood monocytes/100 leukocyt eson 08-22-2022 Monocytes/100 WBC (Bld) 9.8 % 0-10 [facility] Work Phone: Blood platelet mean volumeon 08-22-2022 Platelet mean volume (Bld) [Entitic vol] 10.4 fL 6.2-12.0 [facility] Work Phone: Determination of erythrocyte mean corpuscular volume (MCV)on 08-22-2022 MCV (RBC) [Entitic vol] 95.6 fL 80-94 [facility] Work Phone: Direct bilirubinon Bilirubin.direct [Mass/Vol] 0.15 mg/dL 0.00-0.30 [facility] Work Phone: Hematocrit Auto (Bld) [Volum e fraction]on 08-22-2022 Hematocrit (Bld) [Volume fraction] 43.2 % 40-54 [facility] Work Phone: Laboratory - Chemistry and C hemistry - challengeon 08-22-2022 ALP [Catalytic activity/Vol] 53 U/L 45-117 [facility] Work Phone: ALT [Catalytic activity/Vol] 26 U/L 16-61 [facility] Work Phone: CO2 [Moles/Vol] 26.0 mmol/L 21.0-32.0 [facility] Work Phone: Globulin (S) [Mass/Vol] 3.3 g/dL 2.2-4.2 [facility] Work Phone: Urea nitrogen/Creatinine [Mass ratio] 10.4 mg/mg 10-20 [facility] Work Phone: Laboratory - Hematology and Cell countson 08-22-2022 Erythrocyte distribution width (RBC) [Entitic vol] 46.3 fL 35.1-43.9 [facility] Work Phone: Erythrocyte distribution width (RBC) [Ratio] 13.1 % 11.6-14.6 [facility] Work Phone: Immature granulocytes/100 WBC (Bld) 0.600 % 0.0-0.9 [facility] Work Phone: Comment on above: IG% - Immature Granu locytes (promyelocytes, myelocytes and metamyelocytes) > 1% indicates that a LEFT SHIFT is Present. MCH (RBC) [Entitic mass] 31.9 pg 27.0-32.0 [facility] Work Phone: Nucleated RBC/100 WBC (Bld) [Ratio] 0 % 0-5 [facility] Work Phone: MCHC Auto (RBC) [Mass/Vol]on 08-22-2022 MCHC (RBC) [Mass/Vol] 33.3 g/dL 32-36 [facility] Work Phone: No Panel Informationon 08-22 Estimated Creatinine Clearance Calc 99.01 ml/min [facility] Work Phone: Estimated GFR (MDRD) Amer 115 mL/min >60 [facility] Work Phone: Comment on above: GFR Calc Estimated GFR (MDRD) Non-Af Amer 95 mL/min >60 [facility] Work Phone: Comment on above: Non- GFR Calc Platelets bldon 08-22-2022 Platelets (Bld) [#/Vol] 166 10*3/uL 150-450 [facility] Work Phone: Serum or plasma albumin saniya urement (mass/volume)on 08-22-2022 Albumin [Mass/Vol] 3.1 g/dL 3.2-5.0 [facility] Work Phone: Serum or plasma calcium saniya urement (mass/volume)on 08-22-2022 Calcium [Mass/Vol] 8.2 mg/dL 8.5-10.1 [facility] Work Phone: Serum or plasma creatinine m easurement (mass/volume)on 08-22-2022 Creatinine [Mass/Vol] 0.86 mg/dL 0.70-1.30 [facility] Work Phone: Comment on above: The validity of the calculated GFR & GFRAA in patients over 70 years has not been determined. Clinical correlation is essential. Serum or plasma urea nitroge n measurement (mass/volume)on 08-22-2022 Urea nitrogen [Mass/Vol] 9 mg/dL 7-18 [facility] Work Phone: Thin prep Papanicolaou smear with manual screeningon 08-22-2022 Thin prep Papanicolaou smear with manual screening 14 U/L 15-37 [facility] Work Phone: Thin prep Papanicolaou smear with manual screening 3 5-15 [facility] Work Phone: INR in Blood by Coagulation assayon 08-21-2022 INR Coag (Bld) [Relative time] 1.0 {INR} [facility] Work Phone: Laboratory - Chemistry and C hemistry - challengeon 08-21-2022 Lipase [Catalytic activity/Vol] 98 U/L 73-393 [facility] Work Phone: Magnesium [Mass/Vol] 2.1 mg/dL 1.6-2.6 [facility] Work Phone: Laboratory - Coagulationon 1 aPTT Coag (Bld) [Time] 37.0 s 24.1-36.2 [facility] Work Phone: PT Coag (PPP) [Time] 12.7 s 11.7-14.9 [facility] Work Phone: No Panel Informationon 08-21 Troponin I High Sensitivity 5 pg/mL 3.0-78.0 [facility] Work Phone: Comment on above: Please Note: New Gypsy t Units and Gender Specific Reference Ranges. For more information see Policy Stat Procedure [place] High Sensitivity Troponin (TNIH) and attachments. CBC, Platelets & Auto Diff ( [id number])Ordered By: Unit Operator on 08-08-2022 Basophils (Bld) [#/Vol] 0.1 10*3/uL Normal 0.0-0.2 [facility]; [facility] Work Phone: Comment on above: PATIENT WAS FASTINGP ERFORMED BY: Datahug70 [facility]plexNorth Carolina Specialty Hospital [id number] Basophils/100 WBC (Bld) 1 % Normal [facility]; [facility] Work Phone: Comment on above: PATIENT WAS FASTINGP ERFORMED BY: Datahug[address] [place] [id number] Eosinophils (Bld) [#/Vol] 0.3 10*3/uL Normal 0.0-0.4 [facility]; [facility] Work Phone: Comment on above: PATIENT WAS FASTINGP ERFORMED BY: [facility] Bwgynp8[address]bl[address] [place] [id number] Eosinophils/100 WBC (Bld) 5 % Normal [facility]; [facility] Work Phone: Comment on above: PATIENT WAS FASTINGP ERFORMED BY: [facility] Wcexig[address] [facility] [place] [id number] Erythrocyte distribution width (RBC) [Ratio] 13.3 % Normal 11.6-15.4 [facility]; [facility] Work Phone: Comment on above: PATIENT WAS FASTINGP ERFORMED BY: [facility] Arnkzv8230 [address] RoadNovant Health Kernersville Medical Centerin [place] [id number] Hematocrit (Bld) [Volume fraction] 45.3 % Normal 37.5-51.0 [facility]; [facility] Work Phone: Comment on above: PATIENT WAS FASTINGP ERFORMED BY: LabK[facility] Center6[address] [facility] [id number] Hemoglobin (Bld) [Mass/Vol] 15.3 g/dL Normal 13.0-17.7 [facility]; [facility] Work Phone: Comment on above: PATIENT WAS FASTINGP ERFORMED BY: [facility] Pkolwj[address] [facility]in [place] [id number] Immature granulocytes (Bld) [#/Vol] 0.0 10*3/uL Normal 0.0-0.1 [facility]; [facility] Work Phone: Comment on above: PATIENT WAS FASTINGP ERFORMED BY: Lab[facility] Crxyey9479 [address] RoadNovant Health Kerners[facility] Centerin [place] [id number] Immature granulocytes/100 WBC (Bld) 0 % Normal [facility]; [facility] Work Phone: Comment on above: PATIENT WAS FASTINGP ERFORMED BY: [facility] Jbwcwg2685 [address] Roadblin [place] [id number] Lymphocytes (Bld) [#/Vol] 1.4 10*3/uL Normal 0.7-3.1 [facility]; [facility] Work Phone: Comment on above: PATIENT WAS FASTINGP ERFORMED BY: BRANDYN [facility] Xrzoyt1108 [address] RoadDublin [place] [id number] Lymphocytes/100 WBC (Bld) 24 % Normal [facility]; [facility] Work Phone: Comment on above: PATIENT WAS FASTINGP ERFORMED BY: CB [facility] Xjhbxk8439 [address] RoadDublin [place] [id number] MCH (RBC) [Entitic mass] 31.9 pg Normal 26.6-33.0 [facility]; [facility] Work Phone: Comment on above: PATIENT WAS FASTINGP ERFORMED BY: CB [facility] Qhxldi8655 [address] RoadDublin [place] [id number] MCHC (RBC) [Mass/Vol] 33.8 g/dL Normal 31.5-35.7 [facility] prehensive Internal Medicine; [facility] Work Phone: Comment on above: PATIENT WAS FASTINGP ERFORMED BY: BRANDYN [facility] Dfepbg1345 [address] RoadDublin [place] [id number] MCV (RBC) [Entitic vol] 94 fL Normal 79-97 [facility]; [facility] Work Phone: Comment on above: PATIENT WAS FASTINGP ERFORMED BY: BRANDYN [facility] Isvspt6463 [address] RoadDublin [place] [id number] Monocytes (Bld) [#/Vol] 0.5 10*3/uL Normal 0.1-0.9 [facility]; [facility] Work Phone: Comment on above: PATIENT WAS FASTINGP ERFORMED BY: CB [facility] Yoanyi5797 [address] RoadDublin [place] [id number] Monocytes/100 WBC (Bld) 9 % Normal [facility]; [facility] Work Phone: Comment on above: PATIENT WAS FASTINGP ERFORMED BY: CB [facility] Aocrge6286 [address] RoadDublin [place] [id number] Neutrophils (Bld) [#/Vol] 3.7 10*3/uL Normal 1.4-7.0 [facility]; [facility] Work Phone: Comment on above: PATIENT WAS FASTINGP ERFORMED BY: BRANDYN Labcorula Upuebd0523 [address] RoadDublin [place] [id number] Neutrophils/100 WBC (Bld) 61 % Normal [facility]; [facility] Work Phone: Comment on above: PATIENT WAS FASTINGP ERFORMED BY: BRANDYN [facility] Eqfkoy6173 [address] RoadDublin [place] [id number] Platelets (Bld) [#/Vol] 181 10*3/uL Normal 150-450 [facility]; [facility] Work Phone: Comment on above: PATIENT WAS FASTINGP ERFORMED BY: BRANDYN Labcorula Trxthp4737 [address] RoadDublin [place] [id number] RBC (Bld) [#/Vol] 4.80 10*6/uL Normal 4.14-5.80 [facility] Internal Medicine; [facility] Work Phone: Comment on above: PATIENT WAS FASTINGP ERFORMED BY: BRANDYN Labcorula Rkvysr8442 [address] RoadDublin [place] [id number] WBC (Bld) [#/Vol] 6.0 10*3/uL Normal 3.4-10.8 [facility] Internal Medicine; [facility] Work Phone: Comment on above: PATIENT WAS FASTINGP ERFORMED BY: BRANDYN Labmakayla Iaovth7523 [address] RoadDublin [place] [id number] LIPID PANEL ([id number])Ordered B y: Unit Operator on 08-08-2022 Cholesterol [Mass/Vol] 175 mg/dL Normal 100-199 [facility] Internal Medicine; [facility] Work Phone: Comment on above: PATIENT WAS FASTINGP ERFORMED BY: BRANDYN [facility] Jdnkgk5844 [address] RoadDublin [place] [id number] Cholesterol in HDL [Mass/Vol] 35 mg/dL Abnormal [facility]; [facility] Work Phone: Comment on above: PATIENT WAS FASTINGP ERFORMED BY: BRANDYN [facility] Mlxzsz0808 [address] RoadDublin [place] [id number] Triglyceride [Mass/Vol] 135 mg/dL Normal 0-149 [facility]; [facility] Work Phone: Comment on above: PATIENT WAS FASTINGP ERFORMED BY: BRANDYN Labcorula FoleyPbwkxv[address] [facility]in [place] [id number] LIPID PANEL (97880) 24 mg/dL Normal 5-40 [facility] Internal Medicine; [facility] Work Phone: Comment on above: PATIENT WAS FASTINGP ERFORMED BY: BRANDYN [facility] Bloycx0826 [address] [facility] [id number] LIPID PANEL (92554) 116 mg/dL Abnormal 0-99 [facility] Internal Medicine; [facility] Work Phone: Comment on above: PATIENT WAS FASTINGP ERFORMED BY: BRANDYN Labcorula FoleyOjrblj5240 [address] [facility] [id number] LIPID PANEL (91137) 3.3 {ratio} Normal 0.0-3.6 [facility] Internal Medicine; [facility] Work Phone: Comment on above: LDL/HDL Ratio Men Wo men 1/2 Avg.Risk 1.0 1.5 Avg.Risk 3.6 3.2 2X Avg.Risk 6.2 5.0 3X Avg.Risk 8.0 6.1 PATIENT WAS FASTINGP ERFORMED BY: BRANDYN Labcor[facility] Jvuvbe7111 [facility] [id number] METABOLIC PANEL, COMPREHENSI VE (67825)Ordered By: Unit Operator on 08-08-2022 Albumin [Mass/Vol] 4.1 g/dL Normal 3.8-4.8 [facility] Internal Medicine; [facility] Work Phone: Comment on above: PATIENT WAS FASTINGP ERFORMED BY: BRANDYN [facility] Rqwbse[address] [facility]in [place] [id number] Albumin/Globulin [Mass ratio] 1.6 {ratio} Normal 1.2-2.2 [facility] Internal Medicine; [facility] Work Phone: Comment on above: PATIENT WAS FASTINGP ERFORMED BY: BRANDYN [facility] Swqsff9451 [address] RoadDublin [place] [id number] ALP [Catalytic activity/Vol] 60 U/L Normal 44-121 [facility]; [facility] Work Phone: Comment on above: PATIENT WAS FASTINGP ERFORMED BY: BRANDYN [facility] Zwdlih1937 [address] RoadDublin [place] [id number] ALT [Catalytic activity/Vol] 17 U/L Normal 0-44 [facility]; [facility] Work Phone: Comment on above: PATIENT WAS FASTINGP ERFORMED BY: CB [facility] Yqcpnb9058 [address] RoadDublin [place] [id number] AST [Catalytic activity/Vol] 18 U/L Normal 0-40 [facility]; [facility] Work Phone: Comment on above: PATIENT WAS FASTINGP ERFORMED BY: BRANDYN [facility] Vltast3831 [address] RoadDublin [place] [id number] Bilirubin [Mass/Vol] 0.3 mg/dL Normal 0.0-1.2 [facility]; [facility] Work Phone: Comment on above: PATIENT WAS FASTINGP ERFORMED BY: BRANDYN [facility] Podxmv9134 [address] RoadDublin [place] [id number] Calcium [Mass/Vol] 9.1 mg/dL Normal 8.6-10.2 [facility] Internal Medicine; [facility] Work Phone: Comment on above: PATIENT WAS FASTINGP ERFORMED BY: [facility] Gaeoeh0056 [address] RoadDublin [place] [id number] Chloride [Moles/Vol] 106 mmol/L Normal 96-106 [facility]; [facility] Work Phone: Comment on above: PATIENT WAS FASTINGP ERFORMED BY: CB [facility] Opeqzd2082 [address] RoadDublin [place] [id number] CO2 [Moles/Vol] 24 mmol/L Normal 20-29 [facility] Internal Medicine; [facility] Work Phone: Comment on above: PATIENT WAS FASTINGP ERFORMED BY: CB [facility] Hucwkq5813 [address] RoadDublin [place] [id number] Creatinine [Mass/Vol] 1.01 mg/dL Normal 0.76-1.27 [facility] prehensive Internal Medicine; [facility] Work Phone: Comment on above: PATIENT WAS FASTINGP ERFORMED BY: BRANDYN [facility] Tsvtnm6277 [facility] [id number] GFR/1.73 sq M.predicted among non-blacks MDRD (S/P/Bld) [Vol rate/Area] 85 mL/min/{1.73_m2} Normal Comprehensiv e Internal Medicine; [facility] Work Phone: Comment on above: PATIENT WAS FASTINGP ERFORMED BY: [facility] Pulvla8049 [facility] [id number] Globulin (S) [Mass/Vol] 2.5 g/dL Normal 1.5-4.5 [facility] Internal Medicine; [facility] Work Phone: Comment on above: PATIENT WAS FASTINGP ERFORMED BY: [facility] Fpnica1324 [facility] [id number] Glucose [Mass/Vol] 101 mg/dL Abnormal 70-99 [facility] Internal Medicine; [facility] Work Phone: Comment on above: Please note refere nce interval change PATIENT WAS FASTINGP ERFORMED BY: [facility] Qcatbb4858 [facility] [id number] Potassium [Moles/Vol] 4.8 mmol/L Normal 3.5-5.2 [facility] prehensive Internal Medicine; [facility] Work Phone: Comment on above: PATIENT WAS FASTINGP ERFORMED BY: [facility] Dxoxiy7244 [facility] [id number] Protein [Mass/Vol] 6.6 g/dL Normal 6.0-8.5 [facility] Internal Medicine; [facility] Work Phone: Comment on above: PATIENT WAS FASTINGP ERFORMED BY: [facility] Phmefl9914 [address] [facility] [id number] Sodium [Moles/Vol] 141 mmol/L Normal 134-144 [facility] Internal Medicine; [facility] Work Phone: Comment on above: PATIENT WAS FASTINGP ERFORMED BY: BRANDYN Labjoaquimrula Gstvja[address] RevenewNovant Health Kern[facility] Centerin [place] [id number] Urea nitrogen [Mass/Vol] 15 mg/dL Normal 8-27 [facility]; [facility] Work Phone: Comment on above: PATIENT WAS FASTINGP ERFORMED BY: BRANDYN [facility] Ksxcut0229 [address] [facility] [id number] Urea nitrogen/Creatinine [Mass ratio] 15 mg/mg Normal 10-24 [facility]; [facility] Work Phone: Comment on above: PATIENT WAS FASTINGP ERFORMED BY: BRANDYN Labmakayla Kxkkms8383 [facility]yman[facility] [id number] MICROALBUMINOrdered By: Syst em Tank Stave Assembler on 08-08-2022 Albumin DL <= 20 mg/L (U) [Mass/Vol] 3.1 ug/mL Normal [facility]; [facility] Work Phone: Comment on above: PATIENT WAS FASTINGP ERFORMED BY: BRANDYN Labmakayla Ojsyhm5781 [address] [facility] [id number] Albumin/Creatinine (U) [Mass ratio] 2 {mg/g_creat} Normal 0-29 [facility]; [facility] Work Phone: Comment on above: Normal: 0 - 29 Moder ately increased: 30 - 300 Severely increased: >300 PATIENT WAS FASTINGP ERFORMED BY: BRANDYN Labjoaquim Jgdukh1290 [address] [facility] [id number] Creatinine (U) [Mass/Vol] 128.4 mg/dL Normal [facility]; [facility] Work Phone: Comment on above: PATIENT WAS FASTINGP ERFORMED BY: BRANDYN Labcorula Qobxmb[address] [facility]in [place] [id number] PSA (PROSTATE SPECIFIC ANTIG EN) (V76.44)Ordered By: Unit Operator on 08-08-2022 Prostate specific Ag [Mass/Vol] 1.1 ng/mL Normal 0.0-4.0 [facility]; [facility] Work Phone: Comment on above: Julia ECLIA methodol ogy. .According to the [place] [employer], Serum PSA shoulddecrease and remain at undetectable levels after radicalprostatectomy. The AUA defines biochemical recurrence as an initialPSA value 0.2 ng/mL or greater followed by a subsequent confirmatoryPSA value 0.2 ng/mL or greater.Values obtained with different assay methods or kits cannot be usedinterchangeably. Results cannot be interpreted as absolute evidenceof the presence or absence of malignant disease. PATIENT WAS FASTINGP ERFORMED BY: CB [facility] Bgdenm5505 [address] RoadDublin [place] [id number] TSH (THYROID STIMULATING HOR MUNA) ([id number])Ordered By: Unit Operator on 08-08-2022 TSH Qn 1.210 {uIU/mL} Normal 0.450-4.500 Comprehen sive Internal Medicine; [facility] Work Phone: Comment on above: PATIENT WAS FASTINGP ERFORMED BY: CB [facility] Atgyrm5795 [address] RoadDublin [place] [id number] URINALYSIS, W/ MICRO ([id number]) Ordered By: Unit Operator on 08-08-2022 Appearance (U) Clear Normal Comprehens [facility] Internal Medicine; [facility] Work Phone: Comment on above: PATIENT WAS FASTINGP ERFORMED BY: CB [facility] Hqqnwf2116 [address] RoadDublin [place] [id number] Bilirubin Ql (U) Negative Normal Comprehe nsive Internal Medicine; [facility] Work Phone: Comment on above: PATIENT WAS FASTINGP ERFORMED BY: CB [facility] Qwgxmm7641 [address] RoadDublin [place] [id number] Color (U) Yellow Normal [facility]; [facility] Work Phone: Comment on above: PATIENT WAS FASTINGP ERFORMED BY: CB [facility] Osfdkj8763 [address] RoadDublin [place] [id number] Glucose Ql (U) Negative Normal Comprehens car[facility]; [facility] Work Phone: Comment on above: PATIENT WAS FASTINGP ERFORMED BY: [facility] Yocnhq4609 [address] RoadDublin [place] [id number] Hemoglobin Ql (U) Negative Normal Compreh ensive Internal Medicine; [facility] Work Phone: Comment on above: PATIENT WAS FASTINGP ERFORMED BY: BRANDYN [facility] Spjrsz6926 [address] RoadDublin [place] [id number] Ketones Ql (U) Negative Normal Comprehens [facility]; [facility] Work Phone: Comment on above: PATIENT WAS FASTINGP ERFORMED BY: BRANDYN [facility] Mxuekm0775 [address] RoadDublin [place] [id number] Leukocyte esterase Test strip Ql (U) Negative Normal [facility]; [facility] Work Phone: Comment on above: PATIENT WAS FASTINGP ERFORMED BY: BRANDYN [facility] Ogrkyj3473 [address] RoadDublin [place] [id number] Microscopic observation LM Nom (Urine sed) MICRON Normal [facility]; [facility] Work Phone: Comment on above: Microscopic follows if indicated. PATIENT WAS FASTINGP ERFORMED BY: BRANDYN [facility] Fybuwh9406 [address] RoadDublin [place] [id number] Microscopic observation LM Nom (Urine sed) See below: Normal [facility]; [facility] Work Phone: Comment on above: Microscopic was jasmine cated and was performed. PATIENT WAS FASTINGP ERFORMED BY: BRANDYN [facility] Tpbjwx5266 [address] RoadDublin [place] [id number] Nitrite Ql (U) Negative Normal Comprehens [facility]; [facility] Work Phone: Comment on above: PATIENT WAS FASTINGP ERFORMED BY: [facility] Axldia4215 [address] RoadDublin [place] [id number] pH (U) 6.0 [pH] Normal 5.0-7.5 [facility]; [facility] Work Phone: Comment on above: PATIENT WAS FASTINGP ERFORMED BY: [facility] Uyibja9961 [address] RoadDublin [place] [id number] Protein Ql (U) Negative Normal Comprehens [facility]; [facility] Work Phone: Comment on above: PATIENT WAS FASTINGP ERFORMED BY: BRANDYN Labmakayla Olivares[address] [facility] [id number] Specific gravity (U) [Rel density] 1.018 1 Normal 1.005-1.030 [facility]; [facility] Work Phone: Comment on above: PATIENT WAS FASTINGP ERFORMED BY: BRANDYN [facility] Xpurrq1923 [address] [facility] [id number] Urobilinogen (U) [Mass/Vol] 0.2 mg/dL Normal 0.2-1.0 [facility]; [facility] Work Phone: Comment on above: PATIENT WAS FASTINGP ERFORMED BY: BRANDYN [facility] Lzhgza3890 [address] [facility] [id number] CBC with auto diff ([id number])Or dered By: Unit Operator on 08-07-2021 Basophils (Bld) [#/Vol] 0.1 10*3/uL Normal 0.0-0.2 [facility]; [facility] Work Phone: Comment on above: PATIENT WAS FASTINGP ERFORMED BY: BRANDYN LabJoaquim Klahjt[address] [facility]in [place] [id number] Basophils/100 WBC (Bld) 1 % Normal [facility]; [facility] Work Phone: Comment on above: PATIENT WAS FASTINGP ERFORMED BY: BRANDYN [facility] Ejkegz0514 [address] [facility] [id number] Eosinophils (Bld) [#/Vol] 0.1 10*3/uL Normal 0.0-0.4 [facility]; [facility] Work Phone: Comment on above: PATIENT WAS FASTINGP ERFORMED BY: BRANDYN [facility] Mtfumq[address] [facility]blin [place] [id number] Eosinophils/100 WBC (Bld) 2 % Normal [facility]; [facility] Work Phone: Comment on above: PATIENT WAS FASTINGP ERFORMED BY: BRANDYN [facility] Shuzrt7882 [facility] [id number] Erythrocyte distribution width (RBC) [Ratio] 13.1 % Normal 11.6-15.4 [facility]; [facility] Work Phone: Comment on above: PATIENT WAS FASTINGP ERFORMED BY: BRANDYN Olivares6370 [facility] [id number] Hematocrit (Bld) [Volume fraction] 47.0 % Normal 37.5-51.0 [facility]; [facility] Work Phone: Comment on above: PATIENT WAS FASTINGP ERFORMED BY: [facility] Ahapft5025 [facility] [id number] Hemoglobin (Bld) [Mass/Vol] 15.7 g/dL Normal 13.0-17.7 [facility]; [facility] Work Phone: Comment on above: PATIENT WAS FASTINGP ERFORMED BY: Leonides Gegudg7135 [facility] [id number] Immature granulocytes (Bld) [#/Vol] 0.0 10*3/uL Normal 0.0-0.1 [facility]; [facility] Work Phone: Comment on above: PATIENT WAS FASTINGP ERFORMED BY: Leonides Jnhxce6369 [facility] [id number] Immature granulocytes/100 WBC (Bld) 1 % Normal [facility]; [facility] Work Phone: Comment on above: PATIENT WAS FASTINGP ERFORMED BY: [facility] Rmqozh7182 [facility] [id number] Lymphocytes (Bld) [#/Vol] 1.4 10*3/uL Normal 0.7-3.1 [facility]; [facility] Work Phone: Comment on above: PATIENT WAS FASTINGP ERFORMED BY: [facility] Oyfztw5769 [facility] [id number] Lymphocytes/100 WBC (Bld) 21 % Normal [facility]; [facility] Work Phone: Comment on above: PATIENT WAS FASTINGP ERFORMED BY: [facility] Cdimig2531 [address] RoadDublin [place] [id number] MCH (RBC) [Entitic mass] 31.1 pg Normal 26.6-33.0 [facility]; [facility] Work Phone: Comment on above: PATIENT WAS FASTINGP ERFORMED BY: [facility] Amiwau2341 [address] RoadDublin [place] [id number] MCHC (RBC) [Mass/Vol] 33.4 g/dL Normal 31.5-35.7 [facility] prehensive Internal Medicine; [facility] Work Phone: Comment on above: PATIENT WAS FASTINGP ERFORMED BY: [facility] Jhnojb7728 [address] RoadDublin [place] [id number] MCV (RBC) [Entitic vol] 93 fL Normal 79-97 [facility]; [facility] Work Phone: Comment on above: PATIENT WAS FASTINGP ERFORMED BY: [facility]6[address]Dublin [place] [id number] Monocytes (Bld) [#/Vol] 0.5 10*3/uL Normal 0.1-0.9 [facility]; [facility] Work Phone: Comment on above: PATIENT WAS FASTINGP ERFORMED BY: [facility] Vqhgmh7792 [address] RoadDublin [place] [id number] Monocytes/100 WBC (Bld) 8 % Normal [facility]; [facility] Work Phone: Comment on above: PATIENT WAS FASTINGP ERFORMED BY: [facility]6370 [address]Dublin [place] [id number] Neutrophils (Bld) [#/Vol] 4.3 10*3/uL Normal 1.4-7.0 [facility] Internal [facility]; [facility] Work Phone: Comment on above: PATIENT WAS FASTINGP ERFORMED BY: [facility] Eseydd1540 [address] RoadDublin [place] [id number] Neutrophils/100 WBC (Bld) 67 % Normal [facility]; [facility] Work Phone: Comment on above: PATIENT WAS FASTINGP ERFORMED BY: BRANDYN [facility] Xwfqfd6004 [address] RoadDublin [place] [id number] Platelets (Bld) [#/Vol] 200 10*3/uL Normal 150-450 [facility]; [facility] Work Phone: Comment on above: PATIENT WAS FASTINGP ERFORMED BY: CB [facility] Yutbxw2739 [address] RoadDublin [place] [id number] RBC (Bld) [#/Vol] 5.05 10*6/uL Normal 4.14-5.80 [facility]; [facility] Work Phone: Comment on above: PATIENT WAS FASTINGP ERFORMED BY: CB [facility] Nfjtqc7066 [address] RoadDublin [place] [id number] WBC (Bld) [#/Vol] 6.5 10*3/uL Normal 3.4-10.8 [facility] Internal Medicine; [facility] Work Phone: Comment on above: PATIENT WAS FASTINGP ERFORMED BY: BRANDYN [facility] Emftvv9156 [address] RoadDublin [place] [id number] LIPID PANEL ([id number])Ordered B y: Unit Operator on 08-07-2021 Cholesterol [Mass/Vol] 178 mg/dL Normal 100-199 [facility]; [facility] Work Phone: Comment on above: PATIENT WAS FASTINGP ERFORMED BY: CB [facility] Oxztcz4438 [address] RoadDublin [place] [id number] Cholesterol in HDL [Mass/Vol] 34 mg/dL Abnormal [facility]; [facility] Work Phone: Comment on above: PATIENT WAS FASTINGP ERFORMED BY: CB [facility] Zjkvvb6913 [address] RoadDublin [place] [id number] Triglyceride [Mass/Vol] 127 mg/dL Normal 0-149 [facility]; [facility] Work Phone: Comment on above: PATIENT WAS FASTINGP ERFORMED BY: CB [facility] Jtfkte4492 [address] RoadDublin [place] [id number] LIPID PANEL (31323) 23 mg/dL Normal 5-40 [facility]; [facility] Work Phone: Comment on above: PATIENT WAS FASTINGP ERFORMED BY: BRANDYN LabCorula Iallyw[address] [facility]in [place] [id number] LIPID PANEL (76728) 121 mg/dL Abnormal 0-99 [facility]; [facility] Work Phone: Comment on above: PATIENT WAS FASTINGP ERFORMED BY: BRANDYN [facility] Jorjin8[address] [facility] [id number] LIPID PANEL (12777) 3.6 {ratio} Normal 0.0-3.6 [facility]; [facility] Work Phone: Comment on above: LDL/HDL Ratio Men Wo men 1/2 Avg.Risk 1.0 1.5 Avg.Risk 3.6 3.2 2X Avg.Risk 6.2 5.0 3X Avg.Risk 8.0 6.1 PATIENT WAS FASTINGP ERFORMED BY: BRANDYN [facility] Hylyct6525 [facility] [id number] METABOLIC PANEL, COMPREHENSI VE (89877)Ordered By: Unit Operator on 08-07-2021 Albumin [Mass/Vol] 4.4 g/dL Normal 3.8-4.9 [facility] Internal Medicine; [facility] Work Phone: Comment on above: PATIENT WAS FASTINGP ERFORMED BY: BRANDYN [facility] Ovujmj2588 [facility] [id number] Albumin/Globulin [Mass ratio] 1.8 {ratio} Normal 1.2-2.2 [facility] Internal Medicine; [facility] Work Phone: Comment on above: PATIENT WAS FASTINGP ERFORMED BY: BRANDYN [facility] Wrvmue[address] [facility]in [place] [id number] ALP [Catalytic activity/Vol] 52 U/L Normal 44-121 [facility]; [facility] Work Phone: Comment on above: Please note refere nce interval change PATIENT WAS FASTINGP ERFORMED BY: CB [facility] Mqvibp8783 [facility] [id number] ALT [Catalytic activity/Vol] 14 U/L Normal 0-44 [facility]; [facility] Work Phone: Comment on above: PATIENT WAS FASTINGP ERFORMED BY: BRANDYN Filiberto Olivares6370 [address]Dublin [place] [id number] AST [Catalytic activity/Vol] 17 U/L Normal 0-40 [facility]; [facility] Work Phone: Comment on above: PATIENT WAS FASTINGP ERFORMED BY: BRANDYN [facility] Rvznoj8598 [address] RoadDublin [place] [id number] Bilirubin [Mass/Vol] 0.5 mg/dL Normal 0.0-1.2 Comp rehensive Internal Medicine; [facility] Work Phone: Comment on above: PATIENT WAS FASTINGP ERFORMED BY: BRANDYN LabMin[facility] Rodpal4451 [address] Roadblin [place] [id number] Calcium [Mass/Vol] 9.3 mg/dL Normal 8.6-10.2 [facility] Internal Medicine; [facility] Work Phone: Comment on above: PATIENT WAS FASTINGP ERFORMED BY: BRANDYN LabMineral [facility] Kmuomh3723 [address] RoadDublin [place] [id number] Chloride [Moles/Vol] 105 mmol/L Normal 96-106 Comp rehensive Internal Medicine; [facility] Work Phone: Comment on above: PATIENT WAS FASTINGP ERFORMED BY: [facility] Uzzswx5841 [address] RoadDublin [place] [id number] CO2 [Moles/Vol] 23 mmol/L Normal 20-29 [facility]; [facility] Work Phone: Comment on above: PATIENT WAS FASTINGP ERFORMED BY: BRANDYN [facility] Wtzaom6306 [address] Roadblin [place] [id number] Creatinine [Mass/Vol] 0.92 mg/dL Normal 0.76-1.27 [facility] prehensive Internal Medicine; [facility] Work Phone: Comment on above: PATIENT WAS FASTINGP ERFORMED BY: [facility] Yzoovd4352 [address] RoadDublin [place] [id number] GFR/1.73 sq M.predicted among blacks CKD-EPI (S/P/Bld) [Vol rate/Area] 104 mL/min/1.73 Normal [facility]; [facility] Work Phone: Comment on above: [facility] currently reports eGFR in compliance with the current recommendations of the National Kidney Foundation. [facility] will update reporting as new guidelines are published from the NKF-ASN Task force. PATIENT WAS FASTINGP ERFORMED BY: [facility]6370 [facility] [id number] GFR/1.73 sq M.predicted among non-blacks CKD-EPI (S/P/Bld) [Vol rate/Area] 90 mL/min/1.73 Normal [facility]; [facility] Work Phone: Comment on above: PATIENT WAS FASTINGP ERFORMED BY: [facility]6370 [facility] [id number] Globulin (S) [Mass/Vol] 2.5 g/dL Normal 1.5-4.5 [facility]; [facility] Work Phone: Comment on above: PATIENT WAS FASTINGP ERFORMED BY: [facility]6370 [facility] [id number] Glucose [Mass/Vol] 102 mg/dL Abnormal 65-99 [facility] Internal Medicine; [facility] Work Phone: Comment on above: PATIENT WAS FASTINGP ERFORMED BY: [facility]6370 [facility] [id number] Potassium [Moles/Vol] 4.4 mmol/L Normal 3.5-5.2 [facility] prehensive Internal Medicine; [facility] Work Phone: Comment on above: PATIENT WAS FASTINGP ERFORMED BY: [facility]6370 [facility] [id number] Protein [Mass/Vol] 6.9 g/dL Normal 6.0-8.5 [facility] Internal [facility]; [facility] Work Phone: Comment on above: PATIENT WAS FASTINGP ERFORMED BY: CB [facility] Qknhxz0120 [address] RoadDublin [place] [id number] Sodium [Moles/Vol] 140 mmol/L Normal 134-144 [facility] Internal [facility]; [facility] Work Phone: Comment on above: PATIENT WAS FASTINGP ERFORMED BY: CB [facility] Cysbll6832 [address] RoadDublin [place] [id number] Urea nitrogen [Mass/Vol] 14 mg/dL Normal 8-27 [facility]; [facility] Work Phone: Comment on above: PATIENT WAS FASTINGP ERFORMED BY: CB [facility] Fmyrcw8032 [address] RoadDublin [place] [id number] Urea nitrogen/Creatinine [Mass ratio] 15 mg/mg Normal 10-24 [facility]; [facility] Work Phone: Comment on above: PATIENT WAS FASTINGP ERFORMED BY: CB [facility] Clsksu5103 [address] RoadDublin [place] [id number] PSA (PROSTATE SPECIFIC ANTIG EN) (V76.44)Ordered By: Unit Operator on 08-07-2021 Prostate specific Ag [Mass/Vol] 1.4 ng/mL Normal 0.0-4.0 [facility]; [facility] Work Phone: Comment on above: [employer] ECLIA methodol ogy. .According to the [place] [employer], Serum PSA shoulddecrease and remain at undetectable levels after radicalprostatectomy. The AUA defines biochemical recurrence as an initialPSA value 0.2 ng/mL or greater followed by a subsequent confirmatoryPSA value 0.2 ng/mL or greater.Values obtained with different assay methods or kits cannot be usedinterchangeably. Results cannot be interpreted as absolute evidenceof the presence or absence of malignant disease. PATIENT WAS FASTINGP ERFORMED BY: CB [facility] Kfwbpi7032 [address] RoadDublin [place] [id number] TSH ([id number])Ordered By: PPDaie m Tank Stave Assembler on 08-07-2021 TSH Qn 0.721 {uIU/mL} Normal 0.450-4.500 [facility] Internal Medicine; [facility] Work Phone: Comment on above: PATIENT WAS FASTINGP ERFORMED BY: BRANDYN Olivares6370 [address]Dublin [place] [id number] URINALYSIS, W/ MICRO ([id number]) Ordered By: Unit Operator on 08-07-2021 Appearance (U) Clear Normal Comprehens carmina [facility]; [facility] Work Phone: Comment on above: PATIENT WAS FASTINGP ERFORMED BY: BRANDYN Olivares6370 [address]Dublin [place] [id number] Bilirubin Ql (U) Negative Normal Comprehe nsive Internal Medicine; [facility] Work Phone: Comment on above: PATIENT WAS FASTINGP ERFORMED BY: BRANDYN Olivares6370 [address]Dublin [place] [id number] Color (U) Yellow Normal [facility]; [facility] Work Phone: Comment on above: PATIENT WAS FASTINGP ERFORMED BY: BRANDYN Olivares6370 [address]Dublin [place] [id number] Glucose Ql (U) Negative Normal Comprehens carmina [facility]; [facility] Work Phone: Comment on above: PATIENT WAS FASTINGP ERFORMED BY: BRANDYN Olivares6370 [address]Dublin [place] [id number] Hemoglobin Ql (U) Negative Normal Compreh ensive Internal Medicine; [facility] Work Phone: Comment on above: PATIENT WAS FASTINGP ERFORMED BY: BRANDYN Olivares6[address] [place] [id number] Ketones Ql (U) Negative Normal Comprehens carmina [facility]; [facility] Work Phone: Comment on above: PATIENT WAS FASTINGP ERFORMED BY: BRANDYN Foleylin6370 [address] RoadDublin [place] [id number] Leukocyte esterase Test strip Ql (U) Negative Normal [facility]; [facility] Work Phone: Comment on above: PATIENT WAS FASTINGP ERFORMED BY: BRANDYN Foleylin6370 [address] RoadDublin [place] [id number] Microscopic observation LM Nom (Urine sed) MICRON Normal [facility]; [facility] Work Phone: Comment on above: Microscopic follows if indicated. PATIENT WAS FASTINGP ERFORMED BY: BRANDYN [facility] Imlsnr4099 [address] RoadDublin [place] [id number] Microscopic observation LM Nom (Urine sed) See below: Normal [facility]; [facility] Work Phone: Comment on above: Microscopic was jasmine cated and was performed. PATIENT WAS FASTINGP ERFORMED BY: CB [facility] Oyekul4936 [address] RoadDublin [place] [id number] Nitrite Ql (U) Negative Normal Comprehens carmina [facility]; [facility] Work Phone: Comment on above: PATIENT WAS FASTINGP ERFORMED BY: BRANDYN [facility] Azbaes[address]82 [address] [facility] [place] [id number] pH (U) 8.0 [pH] Abnormal 5.0-7.5 [facility]; [facility] Work Phone: Comment on above: PATIENT WAS FASTINGP ERFORMED BY: BRANDYN [facility] Aewzvs6681 [address] [facility] HospitalD[place] [id number] Protein Ql (U) Trace Normal Comprehens carmina [facility]; [facility] Work Phone: Comment on above: PATIENT WAS FASTINGP ERFORMED BY: BRANDYN [facility] Wevzwd3746 [address] [facility] [id number] Specific gravity (U) [Rel density] 1.021 1 Normal 1.005-1.030 [facility]; [facility] Work Phone: Comment on above: PATIENT WAS FASTINGP ERFORMED BY: [facility] Eljksj0378 [address] [facility] HospitalD[facility] [place] [id number] Urobilinogen (U) [Mass/Vol] 0.2 mg/dL Normal 0.2-1.0 [facility]; [facility] Work Phone: Comment on above: PATIENT WAS FASTINGP ERFORMED BY: [facility] Zuvkaj[address] [facility] Hospitalblin [place] [id number] LIPID PANEL ([id number])Ordered B y: Unit Operator on 07-30-2020 Cholesterol [Mass/Vol] 169 mg/dL Normal 100-199 [facility] Work Phone: Comment on above: PATIENT WAS FASTINGP ERFORMED BY: BRANDYN Olivares6370 [facility] [id number] Cholesterol in HDL [Mass/Vol] 40 mg/dL Normal [facility] Work Phone: Comment on above: PATIENT WAS FASTINGP ERFORMED BY: BRANDYN Foleylin6370 [facility] [id number] Cholesterol in LDL/Cholesterol in HDL [Mass ratio] 2.8 {ratio} Normal 0.0-3.6 [facility] Work Phone: Comment on above: LDL/HDL Ratio Men Wo men 1/2 Avg.Risk 1.0 1.5 Avg.Risk 3.6 3.2 2X Avg.Risk 6.2 5.0 3X Avg.Risk 8.0 6.1 PATIENT WAS FASTINGP ERFORMED BY: BRANDYN Foleylin6370 [facility] [id number] Triglyceride [Mass/Vol] 84 mg/dL Normal 0-149 [facility] Work Phone: Comment on above: PATIENT WAS FASTINGP ERFORMED BY: BRANDYN Foleylin6370 [facility] [id number] LIPID PANEL (40468) 113 mg/dL Abnormal 0-99 [facility] Work Phone: Comment on above: PATIENT WAS FASTINGP ERFORMED BY: BRANDYN Coyle Gbwiqf1724 [facility] [id number] LIPID PANEL (36286) 16 mg/dL Normal 5-40 [facility] Work Phone: Comment on above: PATIENT WAS FASTINGP ERFORMED BY: BRANDYN Foleylin6370 [facility] [id number] LIPID PANEL (03165) 2.8 {ratio} Normal 0.0-3.6 Comp [facility]; [facility] Work Phone: Comment on above: LDL/HDL Ratio Men Wo men 1/2 Avg.Risk 1.0 1.5 Avg.Risk 3.6 3.2 2X Avg.Risk 6.2 5.0 3X Avg.Risk 8.0 6.1 PATIENT WAS FASTINGP ERFORMED BY: BRANDYN LabMakayla FoleyRbwpjh1786 [address] RoadDublin [place] [id number] Metabolic Panel, Comprehensi ve ([id number])Ordered By: Unit Operator on 07-30-2020 Albumin [Mass/Vol] 4.3 g/dL Normal 3.8-4.9 [facility] Internal Medicine Work Phone: Comment on above: PATIENT WAS FASTINGP ERFORMED BY: BRANDYN LabMakayla FoleyXwhnpl[address] [facility]in [place] [id number] Albumin/Globulin [Mass ratio] 1.8 {ratio} Normal 1.2-2.2 [facility] Work Phone: Comment on above: PATIENT WAS FASTINGP ERFORMED BY: BRANDYN [facility]Min[facility] Hxxlii[address] [facility]in [place] [id number] ALP [Catalytic activity/Vol] 60 [iU]/L Normal 39-117 [facility] Work Phone: Comment on above: PATIENT WAS FASTINGP ERFORMED BY: BRANDYN CaliMakayla FoleyDfzhbn6362 [facility]in [place] [id number] ALP [Catalytic activity/Vol] 60 U/L Normal 39-117 [facility]; [facility] Work Phone: Comment on above: PATIENT WAS FASTINGP ERFORMED BY: BRANDYN LabMineral [facility] Jbjqcm[address] [facility]in [place] [id number] ALT [Catalytic activity/Vol] 18 [iU]/L Normal 0-44 [facility] Work Phone: Comment on above: PATIENT WAS FASTINGP ERFORMED BY: BRANDYN LabMin[facility] Dxmtug0245 [address] [facility]in [place] [id number] ALT [Catalytic activity/Vol] 18 U/L Normal 0-44 [facility]; [facility] Work Phone: Comment on above: PATIENT WAS FASTINGP ERFORMED BY: BRANDYN [facility] Xmexvl2606 [address] RoadDublin [place] [id number] AST [Catalytic activity/Vol] 21 [iU]/L Normal 0-40 [facility] Internal Medicine Work Phone: Comment on above: PATIENT WAS FASTINGP ERFORMED BY: CB [facility] [id number]Dublin [place] [id number] AST [Catalytic activity/Vol] 21 U/L Normal 0-40 [facility]; [facility] Internal Medicine Work Phone: Comment on above: PATIENT WAS FASTINGP ERFORMED BY: [facility] [id number]Dublin [place] [id number] Bilirubin [Mass/Vol] 0.4 mg/dL Normal 0.0-1.2 [facility] Work Phone: Comment on above: PATIENT WAS FASTINGP ERFORMED BY: [facility] [id number] [address]Dublin [place] [id number] Calcium [Mass/Vol] 9.3 mg/dL Normal 8.7-10.2 [facility] Internal Medicine Work Phone: Comment on above: PATIENT WAS FASTINGP ERFORMED BY: BRANDYN [facility] [id number]Dublin [place] [id number] Chloride [Moles/Vol] 105 mmol/L Normal 96-106 [facility] Internal Medicine Work Phone: Comment on above: PATIENT WAS FASTINGP ERFORMED BY: [facility] [id number] [address]Dublin [place] [id number] CO2 [Moles/Vol] 23 mmol/L Normal 20-29 [facility] Internal Medicine Work Phone: Comment on above: PATIENT WAS FASTINGP ERFORMED BY: [facility] [id number]Dublin [place] [id number] Creatinine [Mass/Vol] 0.88 mg/dL Normal 0.76-1.27 [facility] Internal Medicine Work Phone: Comment on above: PATIENT WAS FASTINGP ERFORMED BY: CB [facility] Rymded[address]Dublin [place] [id number] GFR/1.73 sq M predicted among blacks CKD-EPI (S/P/Bld) [Vol rate/Area] 109 mL/min/1.73 Normal [facility] Work Phone: Comment on above: PATIENT WAS FASTINGP ERFORMED BY: BRANDYN [facility] [id number]Dublin [place] [id number] GFR/1.73 sq M predicted among non-blacks CKD-EPI (S/P/Bld) [Vol rate/Area] 94 mL/min/1.73 Normal [facility] Work Phone: Comment on above: PATIENT WAS FASTINGP ERFORMED BY: [facility] Abwhel20[address]blin [place] [id number] Globulin (S) [Mass/Vol] 2.4 g/dL Normal 1.5-4.5 [facility] Internal Medicine Work Phone: Comment on above: PATIENT WAS FASTINGP ERFORMED BY: [facility] [facility] [id number] Glucose [Mass/Vol] 102 mg/dL Abnormal 65-99 [facility] Internal Medicine Work Phone: Comment on above: PATIENT WAS FASTINGP ERFORMED BY: [facility] [id number] [facility] [id number] Potassium [Moles/Vol] 4.7 mmol/L Normal 3.5-5.2 [facility] Work Phone: Comment on above: PATIENT WAS FASTINGP ERFORMED BY: [facility] [id number] [facility] [place] [id number] Protein [Mass/Vol] 6.7 g/dL Normal 6.0-8.5 [facility] Internal Medicine Work Phone: Comment on above: PATIENT WAS FASTINGP ERFORMED BY: [facility] [id number] [facility] [place] [id number] Sodium [Moles/Vol] 140 mmol/L Normal 134-144 [facility] Internal Medicine Work Phone: Comment on above: PATIENT WAS FASTINGP ERFORMED BY: [facility] CenterNqsxkc2399 [facility] [id number] Urea nitrogen [Mass/Vol] 15 mg/dL Normal 6-24 [facility] Work Phone: Comment on above: PATIENT WAS FASTINGP ERFORMED BY: [facility]6370 [facility] [id number] Urea nitrogen/Creatinine [Mass ratio] 17 mg/mg Normal 9-20 [facility] Work Phone: Comment on above: PATIENT WAS FASTINGP ERFORMED BY: [facility] [id number] [facility] [id number] PSA (PROSTATE SPECIFIC ANTIG EN) (V76.44)Ordered By: Unit Operator on 07-30-2020 Prostate specific Ag [Mass/Vol] 1.6 ng/mL Normal 0.0-4.0 [facility] Internal Medicine Work Phone: Comment on above: Julia ECLIA methodol ogy. .According to the [place] [employer], Serum PSA shoulddecrease and remain at undetectable levels after radicalprostatectomy. The AUA defines biochemical recurrence as an initialPSA value 0.2 ng/mL or greater followed by a subsequent confirmatoryPSA value 0.2 ng/mL or greater.Values obtained with different assay methods or kits cannot be usedinterchangeably. Results cannot be interpreted as absolute evidenceof the presence or absence of malignant disease. PATIENT WAS FASTINGP ERFORMED BY: [facility] [id number] [facility] [id number] TSH (THYROID STIMULATING HOR MUNA) ([id number])Ordered By: Unit Operator on 07-30-2020 TSH Qn 1.020 {uIU/mL} Normal 0.450-4.500 [facility] Internal Medicine Work Phone: Comment on above: PATIENT WAS FASTINGP ERFORMED BY: [facility]6370 [facility] [id number] Vital Signs Date Time Vital Sign Value Performing Clinician Facility 07-14-2025 05:42-0400 Body mass index (BMI) [Ratio] 37.3 kg/m2 Lissa EUCEDA Work Phone: [facility] 07-14-2025 05:42-0400 Body temperature 97.6 [degF] Lissa Meade AEROSPACE QUALITY ENGINEER-C Work Phone: [facility] 07-14-2025 05:42-0400 Body weight 124.73 kg Lissa Stu AEROSPACE QUALITY ENGINEER-C Work Phone: [facility] 07-14-2025 05:42-0400 Diastolic blood pressure 71 mm[Hg] Lissa Meade AEROSPACE QUALITY ENGINEER-C Work Phone: [facility] 07-14-2025 05:42-0400 Heart rate 80 /min Lissa Meade AEROSPACE QUALITY ENGINEER-C Work Phone: [facility] 07-14-2025 05:42-0400 Respiratory rate 20 /min Lissa Meade AEROSPACE QUALITY ENGINEER-C Work Phone: [facility] 07-14-2025 05:42-0400 SaO2% (BldA) [Mass fraction] 96 % Lissadanyell Meade AEROSPACE QUALITY ENGINEER-C Work Phone: [facility] 07-14-2025 05:42-0400 Systolic blood pressure 124 mm[Hg] Lissa Meade AEROSPACE QUALITY ENGINEER-C Work Phone: [facility] 08-07-2023 07:47-0400 Body height 182.88 cm Lissette Ochoa LPN [facility]; [facility] Work Phone: 08-07-2023 07:47-0400 Body mass index (BMI) [Ratio] 37.3 kg/m2 Lissette Ochoa LPN [facility]; [facility] Work Phone: 08-07-2023 07:47-0400 Body surface area Derived from formula 2.44 m2 Lissette Ochoa LPN [facility]; [facility] Work Phone: 08-07-2023 07:47-0400 Body temperature 97.3 [degF] Lissette Ochoa LPN [facility]; [facility] Work Phone: Comment on above: Method: Temporal 08-07-2023 07:47-0400 Body weight 124.74 kg Lissette Slarb WATER MECHANIC [facility]; [facility] Work Phone: 08-07-2023 07:47-0400 Diastolic blood pressure 82 mm[Hg] Lissette Slarb WATER MECHANIC [facility]; [facility] Work Phone: Comment on above: Patient Position: Sitting; Cuff Location : Left Arm; Cuff Size: Standard 08-07-2023 07:47-0400 Heart rate 81 /min Lissette Slarb WATER MECHANIC [facility]; [facility] Work Phone: Comment on above: Pattern: Regular 08-07-2023 07:47-0400 Respiratory rate 16 /min Lissette Slarb WATER MECHANIC [facility]; [facility] Work Phone: Comment on above: Pattern: Unlabored 08-07-2023 07:47-0400 SaO2% (BldA) [Mass fraction] 95 % Lissette Slarb WATER MECHANIC [facility]; [facility] Work Phone: Comment on above: Room air 08-07-2023 07:47-0400 Systolic blood pressure 124 mm[Hg] Lissette Slarb WATER MECHANIC [facility]; [facility] Work Phone: Comment on above: Patient Position: Sitting; Cuff Location : Left Arm; Cuff Size: Standard 02-04-2023 08:11-0400 Body height 182.88 cm Lissette Slarb WATER MECHANIC [facility]; [facility] Work Phone: 02-04-2023 08:11-0400 Body mass index (BMI) [Ratio] 36.08 kg/m2 Lissette Slarb WATER MECHANIC [facility]; [facility] Work Phone: 02-04-2023 08:11-0400 Body surface area Derived from formula 2.41 m2 Lissette Slarb WATER MECHANIC [facility]; [facility] Work Phone: 02-04-2023 08:11-0400 Body temperature 97.8 [degF] Lissette Slarb WATER MECHANIC [facility]; [facility] Work Phone: Comment on above: Method: Temporal 02-04-2023 08:11-0400 Body weight 120.66 kg Lissette Slarb WATER MECHANIC [facility]; [facility] Work Phone: 02-04-2023 08:11-0400 Diastolic blood pressure 84 mm[Hg] Lissette Slarb WATER MECHANIC [facility]; [facility] Work Phone: Comment on above: Patient Position: Sitting; Cuff Location : Left Arm; Cuff Size: Standard 02-04-2023 08:11-0400 Heart rate 83 /min Lissette Slarb WATER MECHANIC [facility]; [facility] Work Phone: Comment on above: Pattern: Regular 02-04-2023 08:11-0400 Respiratory rate 16 /min Lissette Slarb WATER MECHANIC [facility]; [facility] Work Phone: Comment on above: Pattern: Unlabored 02-04-2023 08:11-0400 SaO2% (BldA) [Mass fraction] 94 % Lissette Slarb WATER MECHANIC [facility]; [facility] Work Phone: Comment on above: Room air 02-04-2023 08:11-0400 Systolic blood pressure 146 mm[Hg] Lissette Slarb WATER MECHANIC [facility]; [facility] Work Phone: Comment on above: Patient Position: Sitting; Cuff Location : Left Arm; Cuff Size: Standard 09-09-2022 08:42-0500 Body height 182.88 cm Lissette Slarb WATER MECHANIC [facility]; [facility] Work Phone: 09-09-2022 08:42-0500 Body mass index (BMI) [Ratio] 35.67 kg/m2 Lissette Slarb WATER MECHANIC [facility]; [facility] Work Phone: 09-09-2022 08:42-0500 Body surface area Derived from formula 2.39 m2 Lissette Slarb WATER MECHANIC [facility]; [facility] Work Phone: 09-09-2022 08:42-0500 Body temperature 97.7 [degF] Lissette Slarb WATER MECHANIC [facility]; [facility] Work Phone: 09-09-2022 08:42-0500 Body weight 119.3 kg Lissette Slarb WATER MECHANIC [facility]; [facility] Work Phone: 09-09-2022 08:42-0500 Diastolic blood pressure 86 mm[Hg] Lissette Slarb WATER MECHANIC [facility]; [facility] Work Phone: Comment on above: Patient Position: Sitting; Cuff Location : Left Arm; Cuff Size: Standard 09-09-2022 08:42-0500 Heart rate 92 /min Lissette Slarb WATER MECHANIC [facility]; [facility] Work Phone: Comment on above: Pattern: Regular 09-09-2022 08:42-0500 Respiratory rate 15 /min Lissette Slarb WATER MECHANIC [facility]; [facility] Work Phone: Comment on above: Pattern: Unlabored 09-09-2022 08:42-0500 SaO2% (BldA) [Mass fraction] 95 % Lissette Slarb WATER MECHANIC [facility]; [facility] Work Phone: Comment on above: Room air 09-09-2022 08:42-0500 Systolic blood pressure 142 mm[Hg] Lissette Slarb WATER MECHANIC [facility]; [facility] Work Phone: Comment on above: Patient Position: Sitting; Cuff Location : Left Arm; Cuff Size: Standard 08-22-2022 16:15-0400 Body temperature 98.5 [degF] Dr. Tino Glass Work Phone: [facility] Work Phone: 08-22-2022 16:15-0400 Diastolic blood pressure 85 mm[Hg] Dr. Tino Glass Work Phone: [facility] Work Phone: 08-22-2022 16:15-0400 Heart rate 77 /min Dr. Tino Glass Work Phone: [facility] Work Phone: 08-22-2022 16:15-0400 Respiratory rate 18 /min Dr. Tino Glass Work Phone: [facility] Work Phone: 08-22-2022 16:15-0400 SaO2% (BldA) [Mass fraction] 95 % Dr. Tino Glass Work Phone: [facility] Work Phone: 08-22-2022 16:15-0400 Systolic blood pressure 133 mm[Hg] Dr. Tino Glass Work Phone: [facility] Work Phone: 08-22-2022 13:15-0400 Inhaled oxygen flow rate 2 L/min Dr. Tino Glass Work Phone: [facility] Work Phone: 08-22-2022 05:47-0400 Body height 182.[address] Tino Glass Work Phone: [facility] Work Phone: 08-22-2022 05:47-0400 Body mass index (BMI) [Ratio] 35.5 kg/m2 Dr. Tino Glass Work Phone: [facility] Work Phone: 08-22-2022 05:47-0400 Body weight 118.[address] Tino Glass Work Phone: [facility] Work Phone: 08-05-2022 08:00-0400 Body height 182.88 cm Lissette Ochoa LPN [facility]; [facility] Work Phone: 08-05-2022 08:00-0400 Body mass index (BMI) [Ratio] 35.23 kg/m2 Lissette Ochoa LPN [facility]; [facility] Work Phone: 08-05-2022 08:00-0400 Body surface area Derived from formula 2.38 m2 Lissette Ochoa LPN [facility]; [facility] Work Phone: 08-05-2022 08:00-0400 Body temperature 97.9 [degF] Lissette Ochoa WATER MECHANIC [facility]; [facility] Work Phone: 08-05-2022 08:00-0400 Body weight 117.85 kg Lissette Ochoa WATER MECHANIC [facility]; [facility] Work Phone: 08-05-2022 08:00-0400 Diastolic blood pressure 82 mm[Hg] Lissette Etiennerb WATER MECHANIC [facility]; [facility] Work Phone: Comment on above: Patient Position: Sitting; Cuff Location : Left Arm; Cuff Size: Standard 08-05-2022 08:00-0400 Heart rate 78 /min Lissette Lowellrb WATER MECHANIC [facility]; [facility] Work Phone: Comment on above: Pattern: Regular 08-05-2022 08:00-0400 Respiratory rate 17 /min Lissette Slarb WATER MECHANIC [facility]; [facility] Work Phone: Comment on above: Pattern: Unlabored 08-05-2022 08:00-0400 SaO2% (BldA) [Mass fraction] 93 % Lissette Ochoa WATER MECHANIC [facility]; [facility] Work Phone: Comment on above: Room air 08-05-2022 08:00-0400 Systolic blood pressure 138 mm[Hg] Lissette Ochoa WATER MECHANIC [facility]; [facility] Work Phone: Comment on above: Patient Position: Sitting; Cuff Location : Left Arm; Cuff Size: Standard 12-27-2021 07:37-0500 Body height 182.88 cm Manfred Davison LPN [facility]; [facility] Work Phone: 12-27-2021 07:37-0500 Body mass index (BMI) [Ratio] 35.23 kg/m2 Manrfed Davison LPN [facility]; [facility] Work Phone: 12-27-2021 07:37-0500 Body surface area Derived from formula 2.38 m2 Manfred Davison LPN [facility]; [facility] Work Phone: 12-27-2021 07:37-0500 Body temperature 98.4 [degF] Manfred Davison LPN [facility]; [facility] Work Phone: Comment on above: Method: Infrared 12-27-2021 07:37-0500 Body weight 117.85 kg Manfred Davison LPN [facility]; [facility] Work Phone: 12-27-2021 07:37-0500 Diastolic blood pressure 82 mm[Hg] Manfred Davison LPN [facility]; [facility] Work Phone: Comment on above: Patient Position: Sitting; Cuff Location : Left Arm; Cuff Size: Standard 12-27-2021 07:37-0500 Heart rate 75 /min Manfred Davison LPN [facility]; [facility] Work Phone: Comment on above: Pattern: Regular 12-27-2021 07:37-0500 Respiratory rate 16 /min Manfred Davison LPN [facility]; [facility] Work Phone: Comment on above: Pattern: Unlabored 12-27-2021 07:37-0500 SaO2% (BldA) [Mass fraction] 93 % Manfred Davison LPN [facility]; [facility] Work Phone: Comment on above: Room air 12-27-2021 07:37-0500 Systolic blood pressure 140 mm[Hg] Manfred Davison LPN [facility]; [facility] Work Phone: Comment on above: Patient Position: Sitting; Cuff Location : Left Arm; Cuff Size: Standard 11-19-2021 10:24-0500 Body height 182.88 cm Deidra Chase LPN [facility]; [facility] Work Phone: 11-19-2021 10:24-0500 Body mass index (BMI) [Ratio] 35.53 kg/m2 Deidra Chase LPN [facility]; [facility] Work Phone: 11-19-2021 10:24-0500 Body surface area Derived from formula 2.39 m2 Deidra Chase LPN [facility]; [facility] Work Phone: 11-19-2021 10:24-0500 Body temperature 98.1 [degF] Deidra Chase LPN [facility]; [facility] Work Phone: Comment on above: Method: Temporal 11-19-2021 10:24-0500 Body weight 118.84 kg Deidra Chase LPN [facility]; [facility] Work Phone: 11-19-2021 10:24-0500 Diastolic blood pressure 98 mm[Hg] Deidra Chase LPN [facility]; [facility] Work Phone: Comment on above: Patient Position: Sitting; Cuff Location : Left Arm; Cuff Size: Standard 11-19-2021 10:24-0500 Heart rate 92 /min Deidra Chase LPN [facility]; [facility] Work Phone: Comment on above: Pattern: Regular 11-19-2021 10:24-0500 Respiratory rate 16 /min Deidra Chase LPN [facility]; [facility] Work Phone: Comment on above: Pattern: Unlabored 11-19-2021 10:24-0500 SaO2% (BldA) [Mass fraction] 96 % Deidra Chase LPN [facility]; [facility] Work Phone: Comment on above: Room air 11-19-2021 10:24-0500 Systolic blood pressure 162 mm[Hg] Deidra Chase LPN [facility]; [facility] Work Phone: Comment on above: Patient Position: Sitting; Cuff Location : Left Arm; Cuff Size: Standard 08-07-2021 08:57-0400 Body height 182.88 cm Brinda Solares CNP Work Phone: [facility]; [facility] Work Phone: Comment on above: 96% 08-07-2021 08:57-0400 Body mass index (BMI) [Ratio] 34.92 kg/m2 Brinda Solares HEARING SPECIALIST Work Phone: [facility]; [facility] Work Phone: Comment on above: 96% 08-07-2021 08:57-0400 Body surface area Derived from formula 2.37 m2 Brinda Solares CNP Work Phone: [facility]; [facility] Work Phone: Comment on above: 96% 08-07-2021 08:57-0400 Body temperature 97.4 [degF] Brinda Solares CNP Work Phone: [facility]; [facility] Work Phone: Comment on above: Method: Temporal 96% 08-07-2021 08:57-0400 Body weight 116.8 kg Brinda Solares CNP Work Phone: [facility]; [facility] Work Phone: Comment on above: 96% 08-07-2021 08:57-0400 Diastolic blood pressure 90 mm[Hg] Brinda Solares CNP Work Phone: [facility]; [facility] Work Phone: Comment on above: Patient Position: Sitting; Cuff Location : Left Arm; Cuff Size: Standard 96% 08-07-2021 08:57-0400 Heart rate 70 /min Brinda Solares CNP Work Phone: [facility]; [facility] Work Phone: Comment on above: Pattern: Regular 96% 08-07-2021 08:57-0400 Respiratory rate 16 /min Brinda Solares CNP Work Phone: [facility]; [facility] Work Phone: Comment on above: Pattern: Unlabored 96% 08-07-2021 08:57-0400 SaO2% (BldA) [Mass fraction] 94 % Brinda Solares CNP Work Phone: [facility]; [facility] Work Phone: Comment on above: Room air 96% 08-07-2021 08:57-0400 Systolic blood pressure 138 mm[Hg] Brinda Solares CNP Work Phone: [facility]; [facility] Work Phone: Comment on above: Patient Position: Sitting; Cuff Location : Left Arm; Cuff Size: Standard 96% 03-20-2021 07:56-0400 Body height 182.88 cm Manfred Davison LPN [facility]; [facility] Work Phone: 03-20-2021 07:56-0400 Body mass index (BMI) [Ratio] 35.53 kg/m2 Manfred Davison LPN [facility]; [facility] Work Phone: 03-20-2021 07:56-0400 Body surface area Derived from formula 2.39 m2 Manfred Davison LPN [facility]; [facility] Work Phone: 03-20-2021 07:56-0400 Body temperature 97.7 [degF] Manfred Davison LPN [facility]; [facility] Work Phone: Comment on above: Method: Infrared 03-20-2021 07:56-0400 Body weight 118.85 kg Manfred Davison LPN [facility]; [facility] Work Phone: 03-20-2021 07:56-0400 Diastolic blood pressure 80 mm[Hg] Manfred Davison LPN [facility]; [facility] Work Phone: Comment on above: Patient Position: Sitting; Cuff Location : Left Arm; Cuff Size: Standard 03-20-2021 07:56-0400 Heart rate 83 /min Manfred Davison LPN [facility]; [facility] Work Phone: Comment on above: Pattern: Regular 03-20-2021 07:56-0400 Respiratory rate 16 /min Manfred Davison LPN [facility]; [facility] Work Phone: Comment on above: Pattern: Unlabored 03-20-2021 07:56-0400 SaO2% (BldA) [Mass fraction] 94 % Manfred Davison LPN [facility]; [facility] Work Phone: Comment on above: Room air 03-20-2021 07:56-0400 Systolic blood pressure 148 mm[Hg] Manfred Davison LPN [facility]; [facility] Work Phone: Comment on above: Patient Position: Sitting; Cuff Location : Left Arm; Cuff Size: Standard 12-21-2020 07:42-0500 BMI (Body Mass Index) 35.4 kg/m2 Manfred Davison LPN [facility]; [facility] Work Phone: 12-21-2020 07:42-0500 Body Temperature 97.2 [degF] Manfred Davison LPN [facility]; [facility] Work Phone: Comment on above: Method: Infrared 12-21-2020 07:42-0500 Body weight 118.39 kg Manfred Davison LPN [facility]; [facility] Work Phone: 12-21-2020 07:42-0500 BP Diastolic 86 mm[Hg] Manfred Davison LPN [facility]; [facility] Work Phone: Comment on above: Patient Position: Sitting; Cuff Location : Left Arm; Cuff Size: Standard 12-21-2020 07:42-0500 BP Systolic 140 mm[Hg] Manfred Davison LPN [facility]; [facility] Work Phone: Comment on above: Patient Position: Sitting; Cuff Location : Left Arm; Cuff Size: Standard 12-21-2020 07:42-0500 BSA (Body Surface Area) 2.39 m2 Manfred Davison LPN [facility]; [facility] Work Phone: 12-21-2020 07:42-0500 Height 182.88 cm Manfred Davison LPN [facility]; [facility] Work Phone: 12-21-2020 07:42-0500 Pulse (Heart Rate) 97 /min Manfred Davison LPN [facility]; [facility] Work Phone: Comment on above: Pattern: Regular 12-21-2020 07:42-0500 Pulse Oximetry 95 % Brinda Solares [facility]; [facility] Work Phone: Comment on above: Room air 12-21-2020 07:42-0500 Respiratory Rate 16 /min Manfred Davison LPN [facility]; [facility] Work Phone: Comment on above: Pattern: Unlabored 12-21-2020 07:42-0500 SaO2% (BldA) [Mass fraction] 95 % Manfred Davison LPN [facility]; [facility] Work Phone: Comment on above: Room air 09-04-2020 08:47-0500 BMI (Body Mass Index) 34.72 kg/m2 Brinda Solares [facility] Work Phone: 09-04-2020 08:47-0500 BMI (Body Mass Index) 35.8 kg/m2 Manfred Davison LPN [facility] Work Phone: 09-04-2020 08:47-0500 Body Temperature 97.4 [degF] Manfred Davison LPN [facility] Work Phone: Comment on above: Method: Infrared 09-04-2020 08:47-0500 Body weight 116.13 kg Brinda Solares [facility] Work Phone: 09-04-2020 08:47-0500 Body weight 119.75 kg Manfred Davison LPN [facility] Work Phone: 09-04-2020 08:47-0500 BP Diastolic 84 mm[Hg] Manfred Davison LPN [facility] Work Phone: Comment on above: Patient Position: Sitting; Cuff Location : Left Arm; Cuff Size: Standard 09-04-2020 08:47-0500 BP Systolic 130 mm[Hg] Manfred Davison LPN [facility] Work Phone: Comment on above: Patient Position: Sitting; Cuff Location : Left Arm; Cuff Size: Standard 09-04-2020 08:47-0500 BSA (Body Surface Area) 2.37 m2 Brinda Solares [facility] Work Phone: 09-04-2020 08:47-0500 BSA (Body Surface Area) 2.4 m2 Manfred Davison LPN [facility] Work Phone: 09-04-2020 08:47-0500 Height 182.88 cm Manfred Davison LPN [facility] Work Phone: 09-04-2020 08:47-0500 Pulse (Heart Rate) 97 /min Manfred Davison LPN [facility] Work Phone: Comment on above: Pattern: Regular 09-04-2020 08:47-0500 Pulse Oximetry 94 % Brinda Tiaalexandra [facility] Work Phone: Comment on above: Room air 09-04-2020 08:47-0500 Respiratory Rate 16 /min Manfred Davison LPN [facility] Work Phone: Comment on above: Pattern: Unlabored 09-04-2020 08:47-0500 SaO2% (BldA) [Mass fraction] 94 % Manfred Davison LPN [facility]; [facility] Work Phone: Comment on above: Room air 07-30-2020 10:34-0400 BMI (Body Mass Index) 34.72 kg/m2 Manfred Davison LPN [facility] Work Phone: 07-30-2020 10:34-0400 Body Temperature 97.4 [degF] Manfred Davison LPN [facility] Work Phone: Comment on above: Method: Infrared 07-30-2020 10:34-0400 Body weight 116.13 kg Manfred Davison LPN [facility] Work Phone: 07-30-2020 10:34-0400 BP Diastolic 82 mm[Hg] Manfred Daviosn LPN [facility] Work Phone: Comment on above: Patient Position: Sitting; Cuff Location : Left Arm; Cuff Size: Standard 07-30-2020 10:34-0400 BP Systolic 120 mm[Hg] Manfred Davison LPN [facility] Work Phone: Comment on above: Patient Position: Sitting; Cuff Location : Left Arm; Cuff Size: Standard 07-30-2020 10:34-0400 BSA (Body Surface Area) 2.37 m2 Manfred Davison LPN [facility] Work Phone: 07-30-2020 10:34-0400 Height 182.88 cm Manfred Davison LPN [facility] Work Phone: 07-30-2020 10:34-0400 Pulse (Heart Rate) 71 /min Manfred Davison LPN [facility] Work Phone: Comment on above: Pattern: Regular 07-30-2020 10:34-0400 Pulse Oximetry 94 % Brinda Weberalexandra [facility] Work Phone: Comment on above: Room air 07-30-2020 10:34-0400 Respiratory Rate 16 /min Manfred Davison LPN [facility] Work Phone: Comment on above: Pattern: Unlabored 07-30-2020 10:34-0400 SaO2% (BldA) [Mass fraction] 94 % Manfred Davison LPN [facility]; [facility] Work Phone: Comment on above: Room air Encounters Encounter Date Encounter Type Care Provider Facility Start: 07-14-2025 End: 07-14-2025 Patient encounter procedure AEROSPACE QUALITY ENGINEER Jaqueline Black [facility] Work Phone: Start: 07-14-2025 End: 07-14-2025 ambulatory Lissa Meade AEROSPACE QUALITY ENGINEER-C Work Phone: -[facility] Start: 02-24-2025 End: 02-24-2025 ambulatory Lissa Stu Facility:[facility] Start: 01-11-2025 End: 01-11-2025 ambulatory Jaqueline Black Facility:[facility] Start: 11-12-2024 End: 11-12-2024 ambulatory Lissa Stu Facility:[facility] Start: 10-28-2024 End: 10-28-2024 ambulatory Jaqueline Black Facility:[facility] Start: 10-18-2024 End: 10-18-2024 ambulatory Lissa Meade Facility:[facility] Start: 09-26-2024 End: 09-26-2024 ambulatory Lissa Meade Facility:[facility] Start: 09-21-2024 End: 09-21-2024 Subsequent hospital visit by physician [address] Comment on above: Pure hypercholestero lemia, unspecified Start: 09-21-2024 End: 09-21-2024 ambulatory LISSA E [facility] Start: 08-07-2023 End: 08-07-2023 Office outpatient visit 15 minutes Lissa Meade CNP Work Phone: [facility] Start: 02-04-2023 ambulatory Brinda Sujatha [facility] Start: 02-04-2023 End: 02-11-2023 Office outpatient visit 15 minutes Lissa Stu WE[facility] Work Phone: [facility] Start: 02-04-2023 Review Lissa Diazkurt WEINER Work Phone: [facility] Start: 01-16-2023 End: 01-16-2023 Patient encounter procedure Lissa Stu WEINER Work Phone: [facility] Start: 09-09-2022 End: 09-10-2022 Office outpatient visit 10 minutes Lissa Meade CNP Work Phone: [facility] Start: 08-22-2022 Non-patient / Non-visit Dr. Bronwyn Glass Work Phone: [facility] Start: 08-21-2022 Non-patient / Non-visit Dr. Bronwyn Glass Work Phone: [facility] Start: 08-21-2022 End: 08-22-2022 Evaluation and management of inpatient Dr. Tino Glass Work Phone: [facility] Start: 08-21-2022 End: 08-22-[address] Tino Glass Work Phone: [facility] Work Phone: Start: 08-05-2022 End: 08-05-2022 Office outpatient visit 15 minutes Lissa Stu WEINER Work Phone: [facility] Start: 12-27-2021 End: 12-27-2021 Periodic preventive med est patient 40-64yrs Brinda Burrsharon WEINER Work Phone: [facility] Start: 12-27-2021 Review Brinda Burrsharon WEINER Work Phone: [facility] Start: 11-19-2021 End: 11-19-2021 Office outpatient visit 15 minutes Brinda Burrsharon WEINER Work Phone: [facility] Start: 08-07-2021 End: 08-07-2021 Office outpatient visit 15 minutes Brinda Solares HEARING SPECIALIST Work Phone: [facility] Start: 03-20-2021 End: 03-20-2021 Office outpatient visit 15 minutes Brinda Solares HEARING SPECIALIST Work Phone: [facility] Start: 02-27-2021 End: 02-27-2021 Annotation/Addendum Brinda Solares HEARING SPECIALIST Work Phone: [facility] Start: 12-21-2020 End: 12-21-2020 Office outpatient visit 25 minutes Brinda Solares [facility] Start: 09-04-2020 End: 09-04-2020 Office outpatient visit 25 minutes Brinda Solares [facility] Start: 09-04-2020 Review Brinda Solares [facility] Start: 08-02-2020 End: 08-02-2020 Annotation/Addendum Brinda Solares [facility] Start: 07-31-2020 End: 07-31-2020 Annotation/Addendum Brinda Solares [facility] Start: 07-30-2020 End: 07-30-2020 Annotation/Addendum Brinda Solares [facility] Start: 07-30-2020 End: 07-30-2020 Office outpatient new 45 minutes Brinda Solares [facility] Procedures Date Procedure Procedure Detail Performing Clinician Start: 09-21-2024 Ct heart no contrast quant eval coronry calcium Lissa Meade STEEL POST INSTALLER-HEARING SPECIALIST Work Phone: Start: 08-22-[address] Tino Glass Work Phone: Start: 08-22-[address] Tino Glass Work Phone: Start: 08-22-2022 Total cholecystectomy and exploration of common bile duct Dr. Tino Glass Work Phone: Start: 08-21-2022 US scan of gallbladder Dr. Tino Glass Work Phone: Start: 08-21-2022 CT of thorax, abdomen and pelvis with contrast Dr. Tino Glass Work Phone: Start: 11-21-2021 End: 11-21-2021 Inital Evaluation (1) - PT Comments: See Note; NOTES: [facility] [address] [place] [address] / REHABILITATION SERVICES INITIAL EVALUATION MR#: [id number] Acct: [id number] Name: SIERRA WILLIS Rep #: [id number] : 1960 61 From: Josy Nuno DPT Referring Dr.: OK Solares Status: REG RCR Insurance: [employer] Patient's Visit Information SIERRA WILLIS is a 61 year old M referred to Physical Therapy by OK Jhaveri with a diagnosis of Left Knee Pain. Date of Evaluation: 11/21/21 Physical Therapist: Josy Nuno DPT - Visit Plan Frequency: 1x/Week Duration: 4 Weeks Plan: Focus on HEP for flexibility, LE and core strength/stabilization and flex- mod of e-stim and. HEP Given IE: TKE, Heel slide, SLR, Hamstring Stretch - Subjective Patient reports that he was walking in the yard on Thursday- he stepped in a hole- big pop and has had medial knee pain. Feels its getting better with ice and Ibuprofen- compression sleeve. No radiating pain. Describes the pain now as dull and achy. No N/T. Worst: 9/10 Agg: turning the knee, getting up after sitting for a long period of time. Best: 0/10 Eases: ice, ibuprofen, compression sleeve, keeping moving. Sleep: wakes him up if he lays on it wrong. 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 He has managed to continue his ADL's but its been slower and more challenging. No exercise. Had x-rays which were negative. No medication or injections. Has an apt to see Dr. Smart next week. PMHx: HTN. Meds: amlodipine - Objective Posture: FH, RS- can correct with verbal cues but does not maintain. Gait: slightly antalgic decrease heel strike on left with ER of the hip Stairs: asc/desc 8 recip with a single hand rail- poor control with decent- not smooth with ascend HR SLS: 15 sec with increased muscular activation HR/TR: able without LOB and no pain. Sensation: WFL to gross touch bilateral. ROM: Knee: 0-120 degrees with pain at end range flexion. Strength: Core: fair plus, Hip: 4+/5, Knee: 4+/5 pain testing flexion Ankle: 5/5. Flex: HS: mod, Gastroc: mod. Palpation: tender to medial joint line - Special Tests R Knee Edgar - Meniscus: Positive R Knee Valgus - MCL: Positive - Goals Goal 1:: Patient will be I with HEP and progression Goal Time Frame: 4-6 Weeks Goal 2:: Patient will ambulate >300 feet with a normalized gait pattern Goal Time Frame: 4-6 Weeks Goal 3:: Patient will return to all normal ADL's without pain Goal Time Frame: 4-6 Weeks - Rehabilitation Potential Physical Therapy Diagnosis: Patient presents with hypomobility- he has decreased pain free ROM, LE and core strength/stabilization, flex and muscular endurance leading to abnormal gait and increased pain with ADL's - Anticipated Interventions Patient/Client Instruction: Educate patient on: Benefits of Fitness Program Therapeutic Exercise to Include: Strength training, Endurance training, Balance training, Coordination, Agility training, Body mechanics, Postural training, Flexibilty training, Gait and locomotor training, Neuromotor development, Dynamic Lumbar Stabilization, Scapular Strength/Stabilization For the Purpose of:: To improve muscle performance and motor function TENS: Yes Cryotherapy (ice pack, ice massage): Yes Thermo therapy (hot pack): Yes Ultrasound (thermal/non thermal): Yes Thank you for the opportunity to evaluate your patient. For Medicare and Medicare HMO plans, please review the plan of care and approve it. It will need to be FAXED BACK to us at [phone] for Medicare purposes. For Medicare only, by signing this I certify the plan of care. Please let me know if there are questions or concerns regarding this plan of care. Physician Signature: Date: <Electronically signed by Josy Nuno DPT> 11/21/21 0800 CC: OK Solares ELR Signed Brinda Solares CNP Work Phone: Start: 11-19-2021 End: 11-19-2021 Knee 4 or More Views Comments: See Note; NOTES: [facility] [address] [place] [address] Knee 4 or More Views MR#: [id number] Acct: [id number] Name: SIERRA WILLIS Rep #: [id number] : 1960 M 61 From: Shiva de luna MD PCP: OK Jhaveri Status: DEP AMB Study: Knee 4 or More Views Date of Exam: 11/19/21 Exam# [id number] Ordering Dr: Brinda Solares NP STUDY: X-RAY - LEFT KNEE REASON FOR EXAM: Male, 61 years old. MEDIAL KNEE PAIN -- STAT TECHNIQUE: 4 view(s) of the knee. COMPARISON: None. FINDINGS: Normal visualized distal femur. Normal visualized proximal tibia and fibula. Normal proximal tibiofibular articulation. Normal medial femorotibial compartment. Normal lateral femorotibial compartment. Normal patellofemoral articulation. The soft tissue structures are unremarkable. RAD/Knee 4 or More Views IMPRESSION: Normal x-ray examination of the knee. Electronically Signed: Shiva Goins MD at 11:46 EST , Service support , CC: OK Solares Engineering Mechanic: Signed Brinda Solares CNP Work Phone: Start: 10-03-2020 End: 10-09-2020 NCS and/or EMG Patient Comments: See Note; NOTES: [facility] Services/Neurology [address] [place] [address] MR#: [id number] Acct: [id number] Name: SIERRA WILLIS Rep #: [id number] : 1960 60 From: Herrera Win MD Referring Dr: Brinda Solares NP AEROSPACE QUALITY ENGINEER-C Status: REG CL I Location: PSN Date: 10/03/20 Sex: M C NCS and/or EMG Patient Report Ordering Doctor: Brinda Solares NP DATE OF SERVICE: 10/03/20 Troy Willis presents for electrodiagnostic testing of the upper limbs. He reports occasional numbness and tingling in the arms. Electrodiagnostic findings: Right median motor nerve demonstrates prolonged distal latency with normal amplitude and reduced conduction velocity. Left median motor nerve demonstrates normal distal latency, amplitude and conduction velocity. Right ulnar motor nerve demonstrates normal distal latency and amplitude with normal conduction. Normal left ulnar motor response. Normal median and ulnar F waves. Prolonged median sensory latency at the wrist bilaterally. On needle EMG, all muscles tested in the upper limb showed no evidence of denervation with normal motor unit action potentials. Electrodiagnostic assessment: This is an abnormal study in the upper limbs. 1. Electrodiagnostic findings demonstrate bilateral median mononeuropathy. This is consistent with a mild left carpal tunnel syndrome and a mild to moderate right carpal tunnel syndrome. If there are any further questions, please do not hesitate to contact me 10/03/20 1529 <Electronically signed by Herrera Win MD> Date Herrera Win MD CC: AEROSPACE QUALITY ENGINEER-C Brinda Solares; Dr. Herrera Win MD Date Dictated: 10/03/20 1344 Date Transcribed: 10/03/20 134 Engineering Mechanic: AA Signed Brinda Solares Start: 07-30-2020 End: 07-31-2020 Cerv Spine 4 or 5 Views Comments: See Note; NOTES: [facility] [address] [place] [address] Cerv Spine 4 or 5 Views MR#: [id number] Acct: [id number] Name: SIERRA WILLIS Rep #: [id number] : 1960 M 59 From: Rosendo Rodriguez MD PCP: Dr. Cherry Tucker MD Status: DEP AMB Study: Cerv Spine 4 or 5 Views Date of Exam: 07/30/20 Exam# [id number] Ordering Dr: Brinda Solares NP AEROSPACE QUALITY ENGINEER-C STUDY: X-RAY - CERVICAL SPINE REASON FOR EXAM: Male, 59 years old. PAIN IN CERVICAL SPINE RADIATING WITH NUMBNESS AND TINGLING IN BOTH ARMS AND HANDS FOR A FEW MONTHS NOW. NO KNOWN INJURY. TECHNIQUE: 5 view(s) of the cervical spine were obtained. COMPARISON: None FINDINGS: Normal anterior atlantoaxial articulation. Normal odontoid process. Normal cervical lordosis. Normal vertebral bodies and endplates. Normal disc space heights. Normal visualized intervertebral neuroforamina. The soft tissue structures are unremarkable. RAD/Cerv Spine 4 or 5 Views IMPRESSION: Normal x-ray examination of the visualized cervical spine. Electronically Signed: Rosendo Rodriguez MD at 9:22 EDT Tel , Service support , CC: OK Solares; Dr. Cherry Tucker MD Engineering Mechanic: Signed Brinda Solares Work Phone: Appendectomy Manfred Davison Comment on above: 1975 Appendectomy Manfred Davison Comment on above: 1975 Appendectomy Manfred Davison Comment on above: 1975 Appendectomy Manfred Davison LP N Comment on above: 1975 Appendectomy Deidra Park PN Comment on above: 1975 Appendectomy Deidra Park PN Comment on above: 1975 Appendectomy Manfred Davison LP N Comment on above: 1975 Appendectomy Lissette Slarb LP N Comment on above: 1975 Appendectomy Lissette Slarb LP N Comment on above: 1975 Appendectomy Lissette Slarb LP N Comment on above: 1975 Appendectomy Lissette Slarb LP N Comment on above: 1975 History of cholecystectomy Status post laparoscopic cholecystectomy Lissa Meade HEARING SPECIALIST Work Phone: Comment on above: incisions healing well. I do not see a r nav to repeat any of the blood work but pt told to call or come in with any concerns.doing well, saw Dr. Anaya in f/u and only return PRN. History of cholecystectomy Status post laparoscopic cholecystectomy Lissette Slarb WATER MECHANIC Comment on above: incisions healing well. I do not see a r nav to repeat any of the blood work but pt told to call or come in with any concerns.doing well, saw Dr. Anaya in f/u and only return PRN. History of cholecystectomy Status post laparoscopic cholecystectomy Lissette Slarb WATER MECHANIC Comment on above: incisions healing well. I do not see a r nav to repeat any of the blood work but pt told to call or come in with any concerns.doing well, saw Dr. Anaya in f/u and only return PRN. History of cholecystectomy History of cholecystectomy Lissa Meade AEROSPACE QUALITY ENGINEER-C Work Phone: Comment on above: laparoscopic 08/22/22 Laparoscopic cholecystectomy Lissette Slarb WATER MECHANIC Comment on above: 08/2022 Laparoscopic cholecystectomy Lissette Slarb WATER MECHANIC Comment on above: 08/2022 Laparoscopic cholecystectomy Lissette Slarb WATER MECHANIC Comment on above: 08/2022 Tonsillectomy Manfred Saman Tonsillectomy Manfred Saman Tonsillectomy Manfred Saman Tonsillectomy Manfred Saman L PN Tonsillectomy Deidra Salvatore WATER MECHANIC Tonsillectomy Deidra Salvatore WATER MECHANIC Tonsillectomy Manfred Saman L PN Tonsillectomy Lissette Slarb L PN Tonsillectomy Lissette Slarb L PN Tonsillectomy Lissette Slarb L PN Tonsillectomy Lissette Slarb L PN Plan of Treatment Date Care Activity Detail Author Start: 2035 RSV High Risk: (Elde rly (60+) or Population) (1 - 1-dose 75+ series) RSV High Risk: (Elderly (60+) or Population) (1 - 1-dose 75+ series) [facility] Start: 2025 Pneumococcal Vaccine : 65+ Years (1 of 1 - PCV) Pneumococcal Vaccine: 65+ Years (1 of 1 - PCV) [facility] Start: 07-03-2024 COVID-19 Vaccine ( season) COVID-19 Vaccine ( season) [facility] Start: 07-03-2024 Influenza vaccination Influenza Vacc ine (#1) [facility] Start: 08-07-2023 Assay of prostate specific antigen total PSA TOTAL (RFLX FREE) 653078 (51551) [facility]; [facility] Work Phone: Start: 08-07-2023 Procedure Education Eprescribe d prescriptions (G8553) [facility]; [facility] Work Phone: Start: 08-07-2023 Provider Instruction s for Treatment Follow up in 6 months [facility]; [facility] Work Phone: Start: 08-07-2023 Lipid panel LIPID PANEL (68540) [facility]; [facility] Work Phone: Start: 08-07-2023 Comprehensive metabo lic panel METABOLIC PANEL, COMPREHENSIVE (02006) [facility]; [facility] Work Phone: Start: 02-04-2023 Procedure Education Eprescribe d prescriptions (G8553) [facility]; [facility] Work Phone: Start: 09-09-2022 Procedure Education Eprescribe d prescriptions (G8553) [facility]; [facility] Work Phone: Start: 09-09-2022 Provider Instruction s for Treatment Follow up - Keep appt as scheduled [facility]; [facility] Work Phone: Start: 08-22-2022 Patient discharge [facility] Work Phone: Start: 08-21-2022 Application of intermittent pneumatic compression device [facility] Work Phone: Start: 08-21-2022 Following clinical pathway protocol [facility] Work Phone: Start: 08-21-2022 Ambulation without limitation [facility] Work Phone: Start: 08-21-2022 Catheterization of vein [facility] Work Phone: Start: 08-21-2022 Incentive spirometry [facility] Work Phone: Start: 08-21-2022 Measuring intake and output [facility] Work Phone: Start: 08-21-2022 Notification of physician [facility] Work Phone: Start: 08-21-2022 Vital signs measurements [facility] Work Phone: Start: 08-21-2022 [facility] Work Phone: Start: 08-21-2022 Admission procedure [facility] Work Phone: Start: 08-21-2022 [facility] Work Phone: Start: 08-05-2022 Procedure Education Eprescribe d prescriptions (G8553) [facility]; [facility] Work Phone: Start: 08-05-2022 Provider Instruction s for Treatment Follow up in 6 months [facility]; [facility] Work Phone: Start: 08-05-2022 Assay of prostate specific antigen total PSA (PROSTATE SPECIFIC ANTIGEN) (V76.44) [facility]; [facility] Work Phone: Start: 08-05-2022 Lipid panel LIPID PANEL (47304) [facility]; [facility] Work Phone: Start: 08-05-2022 Assay of thyroid stimulating hormone tsh TSH (THYROID STIMULATING HORMONE) (81344) [facility]; [facility] Work Phone: Start: 08-05-2022 Urnls dip stick/tabl et reagent auto microscopy URINALYSIS, W/ MICRO (83345) [facility]; [facility] Work Phone: Start: 08-05-2022 Urine albumin quantitative MICROALBUMIN: CREATININE RATIO (60291) AND (03083) [facility]; [facility] Work Phone: Start: 08-05-2022 Blood count complete auto&auto difrntl wbc CBC, Platelets & Auto Diff (06916) [facility]; [facility] Work Phone: Start: 08-05-2022 Comprehensive metabo lic panel METABOLIC PANEL, COMPREHENSIVE (80338) [facility]; [facility] Work Phone: Start: 12-27-2021 Procedure Education Eprescribe d prescriptions (G8553) [facility]; [facility] Work Phone: Start: 12-27-2021 Provider Instruction s for Treatment Follow up in 8 months [facility]; [facility] Work Phone: Start: 12-27-2021 Assay of prostate specific antigen total PSA (PROSTATE SPECIFIC ANTIGEN) (V76.44) [facility]; [facility] Work Phone: Comment on above: Aug 08 2022 Start: 12-27-2021 Urine albumin quantitative MICROALBUMIN: CREATININE RATIO (74415) AND (10809) [facility]; [facility] Work Phone: Comment on above: Aug 08 2022 Start: 12-27-2021 Assay of thyroid stimulating hormone tsh TSH (15786) [facility] [facility]; [facility] Work Phone: Comment on above: Aug 08 2022 Start: 12-27-2021 Blood count complete auto&auto difrntl wbc CBC, Platelets & Auto Diff (23274) [facility]; [facility] Work Phone: Comment on above: Aug 08 2022 Start: 12-27-2021 Lipid panel Lipid Panel (36611) [facility]; [facility] Work Phone: Comment on above: Aug 08 2022 Start: 12-27-2021 Comprehensive metabo lic panel Metabolic Panel, Comprehensive (43075) [facility]; [facility] Work Phone: Comment on above: Aug 08 2022 Start: 11-19-2021 Procedure Education Eprescribe d prescriptions (G8553) [facility]; [facility] Work Phone: Start: 11-19-2021 Provider Instruction s for Treatment Follow up if no improvement or if symptoms worsen [facility]; [facility] Work Phone: Start: 08-07-2021 Procedure Education Eprescribe d prescriptions (G8553) [facility]; [facility] Work Phone: Start: 08-07-2021 Provider Instruction s for Treatment Follow up in 4 months [facility]; [facility] Work Phone: Start: 07-31-2021 Assay of thyroid stimulating hormone tsh TSH (65953) [facility]; [facility] Work Phone: Start: 07-31-2021 Urnls dip stick/tabl et reagent auto microscopy URINALYSIS, W/ MICRO (67966) [facility]; [facility] Work Phone: Start: 07-31-2021 Comprehensive metabo lic panel METABOLIC PANEL, COMPREHENSIVE (19182) [facility]; [facility] Work Phone: Start: 07-31-2021 Lipid panel LIPID PANEL (91541) [facility]; [facility] Work Phone: Start: 07-31-2021 Blood count manual c ell count each CBC with auto diff (87924) [facility]; [facility] Work Phone: Start: 07-31-2021 Assay of prostate specific antigen total PSA (PROSTATE SPECIFIC ANTIGEN) (V76.44) [facility]; [facility] Work Phone: Start: 03-20-2021 Procedure Education Eprescribe d prescriptions (G8553) [facility]; [facility] Work Phone: Start: 03-20-2021 Provider Instruction s for Treatment [facility]; [facility] Work Phone: Start: 12-21-2020 Procedure Education Eprescribe d prescriptions (G8553) [facility]; [facility] Work Phone: Start: 12-21-2020 Provider Instruction s for Treatment [facility]; [facility] Work Phone: Start: 09-04-2020 Procedure Education Eprescribe d prescriptions (G8553) [facility] Work Phone: Start: 09-04-2020 Provider Instruction s for Treatment [facility] Work Phone: Start: 07-30-2020 Procedure Education Eprescribe d prescriptions (G8553) [facility] Work Phone: Start: 07-30-2020 Provider Instruction s for Treatment [facility] Work Phone: Start: 07-30-2020 Comprehensive metabo lic panel Metabolic Panel, Comprehensive (08436) [facility] Work Phone: Start: 07-30-2020 TSH Qn TSH (THYROID STIMULATING HORMONE) (70089) [facility] Work Phone: Start: 07-30-2020 Lipid panel LIPID PANEL (07289) [facility] Work Phone: Start: 07-30-2020 Assay of prostate specific antigen total PSA (PROSTATE SPECIFIC ANTIGEN) (V76.44) [facility] Work Phone: Start: 2010 Zoster Vaccines (1 of 2) Zoste r Vaccines (1 of 2) [facility] Start: 1982 DTaP/Tdap/Td Vaccine s (1 - Tdap) DTaP/Tdap/Td Vaccines (1 - Tdap) [facility] Start: 1978 Hepatitis C screening Hepatitis C [facility] Start: 1961 MMR Vaccines (1 of 1 - Standard series) MMR Vaccines (1 of 1 - Standard series) [facility] Start: 1960 HIV screening [facility] Scre[facility] Start: 1960 Lipid panel Lipid Panel [facility] Start: 1960 Screening for malign ant neoplasm of colon [facility] Start: 1960 Yearly Adult Physical Yearly Adult P hysical [facility] Work [facility]: [facility] Work [facility]: [facility] Work Phone: [facility] Work Phone: [facility]; [facility] Work Phone: [facility]; [facility] Work Phone: [facility]; [facility] Work Phone: [facility] Payers Date Payer Category Payer Self-pay [id number] 2024 Unknown [id number] 2024 [employer] Blue [employer] [facility] [id number] 2022 Unknown [id number] 1960 Unknown [id number] 1960 Unknown [id number] Unknown Unknown [id number] Unknown [id number] Unknown [id number] Unknown [id number] Unknown [id number] Unknown [id number] Unknown [id number] Unknown [id number] Unknown [id number] Social History Date Type Detail Facility Alcohol Use: Alcohol Use: [facility] Work Phone: Comment on above: 2per month Caffeine Use Caffeine Use [facility] Work Phone: Comment on above: 2 cups/ day lives with son Current Work/Study Status: Current Work/Study Status: [facility] Work Phone: Tobacco Use: Tobacco Use: [facility] Work Phone: Alcohol Use: Alcohol Use: [facility]; [facility] Work Phone: Comment on above: 2per month Current Work/Study Status: Current Work/Study Status: [facility]; [facility] Work Phone: Tobacco Use: Tobacco Use: [facility]; [facility] Work Phone: Start: 08-21-2022 Tobacco smoking status NHIS Unknown if ever smoked [facility] Work Phone: Start: 1960 Sex Assigned At Male [facility] Start: 1960 Sex assigned at Not on file [facility] Work Phone: Gender identity Not on file [facility] Work Phone: Start: 09-11-2024 End: 09-21-2024 Exposure to SARS-CoV-2 (event) Not sure [facility] Start: 10-18-2024 Tobacco smoking status NHIS Ex-smoker (finding) [facility] Medical Equipment Procedure Code Equipment Code Equipment Original Text Equipment Identifier Dates Total cholecystectomy with exploration of common bile duct Ligation clip, synthetic polymer, non-bioabsorbable [id number] FDA Start: 08-22-2022 Goals Date Patient Goal Desired Activity /State Functional Status Date Assessment Result Facility 08-22-2022 Functional status Ambulates;Up ad bonifacio [facility] Work Phone: Mental Status Date Assessment Result Facility 08-22-2022 Cognitive function Level Of Cons ciousness Awake;Alert;Appropriate;Follow s Commands [facility] Work Phone: 08-22-2022 Cognitive function Voice/Name [facility] Work Phone: 08-22-2022 Cognitive function Appropriate;Cooperativ e [facility] Work Phone: Clinical Notes Note Date & Type Note Facility Evaluation note Diagnosis Onset Date Acute cholecystitis acute Cholelithiasis acute Hypertension [facility] Work Phone: Evaluation note* Diagnosis Pure hypercholesterolemia, unspecified documented in this encounter [facility] Work Phone: Evaluation note* Diagnosis Onset Date Resolution Status Admit Date 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 7:46am Hypertension chronic July 142024 7:46am Obstructive sleep apnea chronic [facility] 2024 7:46am Personal history of nicotine dependence chronic July 14, 2025 7:46am [facility] Work Phone: Instructions* Name Dates Details Patient Instructions Indication:History of artificial skin graft Start:21-Dec-2020 Instruction Type:Provider Instructions for Treatment How to Access Health Informa tion Online using Patient Portal and [employer] Apps Indication:Nonsmoker Start:21-Dec-2020 Instruction Type:Patient Education How to access health informa tion online Indication:Nonsmoker Start:04-Sep-2020 Instruction Type:Patient Education How to access health informa tion online - Detail Indication:Nonsmoker Start:04-Sep-2020 Instruction Type:Patient Education Patient Instructions Indication:Neck pain Start:04-Sep-2020 Instruction Type:Provider Instructions for Treatment How to access health informa tion online Indication:Nonsmoker Start:30-Jul-2020 Instruction Type:Patient Education How to access health informa tion online - Detail Indication:Nonsmoker Start:30-Jul-2020 Instruction Type:Patient Education Patient Instructions Indication:Nonsmoker Start:30-Jul-2020 Instruction Type:Provider Instructions for Treatment [facility]; [facility] Work Phone: [employer]* Name Dates Details Patient Instructions Indication:History of artificial skin graft Start:21-Dec-2020 Instruction Type:Provider Instructions for Treatment How to Access Health Informa tion Online using Patient Portal and [employer]rd [employer] Apps Indication:Nonsmoker Start:21-Dec-2020 Instruction Type:Patient Education How to access health informa tion online Indication:Nonsmoker Start:04-Sep-2020 Instruction Type:Patient Education How to access health informa tion online - Detail Indication:Nonsmoker Start:04-Sep-2020 Instruction Type:Patient Education Patient Instructions Indication:Neck pain Start:04-Sep-2020 Instruction Type:Provider Instructions for Treatment How to access health informa tion online Indication:Nonsmoker Start:30-Jul-2020 Instruction Type:Patient Education How to access health informa tion online - Detail Indication:Nonsmoker Start:30-Jul-2020 Instruction Type:Patient Education Patient Instructions Indication:Nonsmoker Start:30-Jul-2020 Instruction Type:Provider Instructions for Treatment [facility]; [facility] Work Phone: instructions* Name Dates Details Patient Instructions Indication:Encounter for screening for malignant neoplasm of prostate (Renamed from Screening for prostate cancer) Start:20-Mar-2021 Instruction Type:Provider Instructions for Treatment How to Access Health Informa tion Online using Patient Portal and [employer]rd [employer] Apps Indication:Nonsmoker Start:20-Mar-2021 Instruction Type:Patient Education Patient Instructions Indication:History of artificial skin graft Start:21-Dec-2020 Instruction Type:Provider Instructions for Treatment How to Access Health Informa tion Online using Patient Portal and [employer]rd [employer] Apps Indication:Nonsmoker Start:21-Dec-2020 Instruction Type:Patient Education How to access health informa tion online Indication:Nonsmoker Start:04-Sep-2020 Instruction Type:Patient Education How to access health informa tion online - Detail Indication:Nonsmoker Start:04-Sep-2020 Instruction Type:Patient Education Patient Instructions Indication:Neck pain Start:04-Sep-2020 Instruction Type:Provider Instructions for Treatment How to access health informa tion online Indication:Nonsmoker Start:30-Jul-2020 Instruction Type:Patient Education How to access health informa tion online - Detail Indication:Nonsmoker Start:30-Jul-2020 Instruction Type:Patient Education Patient Instructions Indication:Nonsmoker Start:30-Jul-2020 Instruction Type:Provider Instructions for Treatment [facility]; [facility] Work Phone: Instructions* Name Dates Details Patient Instructions Indication:BMI 35.0-35.9,adult Start:07-Aug-2021 Instruction Type:Provider Instructions for Treatment How to Access Health Informa tion Online using Patient Portal and [employer]rd [employer] Apps Indication:BMI 35.0-35.9,adult Start:07-Aug-2021 Instruction Type:Patient Education Patient Instructions Indication:Encounter for screening for malignant neoplasm of prostate (Renamed from Screening for prostate cancer) Start:20-Mar-2021 Instruction Type:Provider Instructions for Treatment How to Access Health Informa tion Online using Patient Portal and [employer]rd [employer] Apps Indication:Nonsmoker Start:20-Mar-2021 Instruction Type:Patient Education Patient Instructions Indication:History of artificial skin graft Start:21-Dec-2020 Instruction Type:Provider Instructions for Treatment How to Access Health Informa tion Online using Patient Portal and [employer]rd [employer] Apps Indication:Nonsmoker Start:21-Dec-2020 Instruction Type:Patient Education How to access health informa tion online Indication:Nonsmoker Start:04-Sep-2020 Instruction Type:Patient Education How to access health informa tion online - Detail Indication:Nonsmoker Start:04-Sep-2020 Instruction Type:Patient Education Patient Instructions Indication:Neck pain Start:04-Sep-2020 Instruction Type:Provider Instructions for Treatment How to access health informa tion online Indication:Nonsmoker Start:30-Jul-2020 Instruction Type:Patient Education How to access health informa tion online - Detail Indication:Nonsmoker Start:30-Jul-2020 Instruction Type:Patient Education Patient Instructions Indication:Nonsmoker Start:30-Jul-2020 Instruction Type:Provider Instructions for Treatment [facility]; [facility] Work Phone: Instructions* Name Dates Details Patient Instructions Indication:BMI 35.0-35.9,adult Start:19-Nov-2021 Instruction Type:Provider Instructions for Treatment How to Access Health Informa tion Online using Patient Portal and [employer]rd [employer] Apps Indication:BMI 35.0-35.9,adult Start:19-Nov-2021 Instruction Type:Patient Education Patient Instructions Indication:BMI 35.0-35.9,adult Start:07-Aug-2021 Instruction Type:Provider Instructions for Treatment How to Access Health Informa tion Online using Patient Portal and [employer]rd [employer] Apps Indication:BMI 35.0-35.9,adult Start:07-Aug-2021 Instruction Type:Patient Education Patient Instructions Indication:Encounter for screening for malignant neoplasm of prostate (Renamed from Screening for prostate cancer) Start:20-Mar-2021 Instruction Type:Provider Instructions for Treatment How to Access Health Informa tion Online using Patient Portal and [employer] Apps Indication:Nonsmoker Start:20-Mar-2021 Instruction Type:Patient Education Patient Instructions Indication:History of artificial skin graft Start:21-Dec-2020 Instruction Type:Provider Instructions for Treatment How to Access Health Informa tion Online using Patient Portal and [employer] Apps Indication:Nonsmoker Start:21-Dec-2020 Instruction Type:Patient Education How to access health informa tion online Indication:Nonsmoker Start:04-Sep-2020 Instruction Type:Patient Education How to access health informa tion online - Detail Indication:Nonsmoker Start:04-Sep-2020 Instruction Type:Patient Education Patient Instructions Indication:Neck pain Start:04-Sep-2020 Instruction Type:Provider Instructions for Treatment How to access health informa tion online Indication:Nonsmoker Start:30-Jul-2020 Instruction Type:Patient Education How to access health informa tion online - Detail Indication:Nonsmoker Start:30-Jul-2020 Instruction Type:Patient Education Patient Instructions Indication:Nonsmoker Start:30-Jul-2020 Instruction Type:Provider Instructions for Treatment [facility]; [facility] Work Phone: Instructions* Name Dates Details Patient Instructions Indication:BMI 35.0-35.9,adult Start:19-Nov-2021 Instruction Type:Provider Instructions for Treatment How to Access Health Informa tion Online using Patient Portal and [employer]rd [employer] Apps Indication:BMI 35.0-35.9,adult Start:19-Nov-2021 Instruction Type:Patient Education Patient Instructions Indication:BMI 35.0-35.9,adult Start:07-Aug-2021 Instruction Type:Provider Instructions for Treatment How to Access Health Informa tion Online using Patient Portal and [employer]rd [employer] Apps Indication:BMI 35.0-35.9,adult Start:07-Aug-2021 Instruction Type:Patient Education Patient Instructions Indication:Encounter for screening for malignant neoplasm of prostate (Renamed from Screening for prostate cancer) Start:20-Mar-2021 Instruction Type:Provider Instructions for Treatment How to Access Health Informa tion Online using Patient Portal and [employer] Apps Indication:Nonsmoker Start:20-Mar-2021 Instruction Type:Patient Education Patient Instructions Indication:History of artificial skin graft Start:21-Dec-2020 Instruction Type:Provider Instructions for Treatment How to Access Health Informa tion Online using Patient Portal and [employer] Apps Indication:Nonsmoker Start:21-Dec-2020 Instruction Type:Patient Education How to access health informa tion online Indication:Nonsmoker Start:04-Sep-2020 Instruction Type:Patient Education How to access health informa tion online - Detail Indication:Nonsmoker Start:04-Sep-2020 Instruction Type:Patient Education Patient Instructions Indication:Neck pain Start:04-Sep-2020 Instruction Type:Provider Instructions for Treatment How to access health informa tion online Indication:Nonsmoker Start:30-Jul-2020 Instruction Type:Patient Education How to access health informa tion online - Detail Indication:Nonsmoker Start:30-Jul-2020 Instruction Type:Patient Education Patient Instructions Indication:Nonsmoker Start:30-Jul-2020 Instruction Type:Provider Instructions for Treatment [facility]; [facility] Work Phone: Instructions* Name Dates Details Patient Instructions Indication:Nonsmoker Start:27-Dec-2021 Instruction Type:Provider Instructions for Treatment How to Access Health Informa tion Online using Patient Portal and [employer] Apps Indication:Nonsmoker Start:27-Dec-2021 Instruction Type:Patient Education Patient Instructions Indication:BMI 35.0-35.9,adult Start:19-Nov-2021 Instruction Type:Provider Instructions for Treatment How to Access Health Informa tion Online using Patient Portal and [employer] Apps Indication:BMI 35.0-35.9,adult Start:19-Nov-2021 Instruction Type:Patient Education Patient Instructions Indication:BMI 35.0-35.9,adult Start:07-Aug-2021 Instruction Type:Provider Instructions for Treatment How to Access Health Informa tion Online using Patient Portal and [employer] Apps Indication:BMI 35.0-35.9,adult Start:07-Aug-2021 Instruction Type:Patient Education Patient Instructions Indication:Encounter for screening for malignant neoplasm of prostate (Renamed from Screening for prostate cancer) Start:20-Mar-2021 Instruction Type:Provider Instructions for Treatment How to Access Health Informa tion Online using Patient Portal and [employer] Apps Indication:Nonsmoker Start:20-Mar-2021 Instruction Type:Patient Education Patient Instructions Indication:History of artificial skin graft Start:21-Dec-2020 Instruction Type:Provider Instructions for Treatment How to Access Health Informa tion Online using Patient Portal and [employer] Apps Indication:Nonsmoker Start:21-Dec-2020 Instruction Type:Patient Education How to access health informa tion online Indication:Nonsmoker Start:04-Sep-2020 Instruction Type:Patient Education How to access health informa tion online - Detail Indication:Nonsmoker Start:04-Sep-2020 Instruction Type:Patient Education Patient Instructions Indication:Neck pain Start:04-Sep-2020 Instruction Type:Provider Instructions for Treatment How to access health informa tion online Indication:Nonsmoker Start:30-Jul-2020 Instruction Type:Patient Education How to access health informa tion online - Detail Indication:Nonsmoker Start:30-Jul-2020 Instruction Type:Patient Education Patient Instructions Indication:Nonsmoker Start:30-Jul-2020 Instruction Type:Provider Instructions for Treatment [facility]; [facility] Work Phone: Instructions* Name Dates Details Patient Instructions Indication:BMI 35.0-35.9,adult Start:27-Dec-2021 Instruction Type:Provider Instructions for Treatment How to Access Health Informa tion Online using Patient Portal and [employer] Apps Indication:Nonsmoker Start:27-Dec-2021 Instruction Type:Patient Education Patient Instructions Indication:BMI 35.0-35.9,adult Start:19-Nov-2021 Instruction Type:Provider Instructions for Treatment How to Access Health Informa tion Online using Patient Portal and [employer]rd [employer] Apps Indication:BMI 35.0-35.9,adult Start:19-Nov-2021 Instruction Type:Patient Education Patient Instructions Indication:BMI 35.0-35.9,adult Start:07-Aug-2021 Instruction Type:Provider Instructions for Treatment How to Access Health Informa tion Online using Patient Portal and [employer] Apps Indication:BMI 35.0-35.9,adult Start:07-Aug-2021 Instruction Type:Patient Education Patient Instructions Indication:Encounter for screening for malignant neoplasm of prostate (Renamed from Screening for prostate cancer) Start:20-Mar-2021 Instruction Type:Provider Instructions for Treatment How to Access Health Informa tion Online using Patient Portal and [employer] Apps Indication:Nonsmoker Start:20-Mar-2021 Instruction Type:Patient Education Patient Instructions Indication:History of artificial skin graft Start:21-Dec-2020 Instruction Type:Provider Instructions for Treatment How to Access Health Informa tion Online using Patient Portal and [employer] Apps Indication:Nonsmoker Start:21-Dec-2020 Instruction Type:Patient Education How to access health informa tion online Indication:Nonsmoker Start:04-Sep-2020 Instruction Type:Patient Education How to access health informa tion online - Detail Indication:Nonsmoker Start:04-Sep-2020 Instruction Type:Patient Education Patient Instructions Indication:Neck pain Start:04-Sep-2020 Instruction Type:Provider Instructions for Treatment How to access health informa tion online Indication:Nonsmoker Start:30-Jul-2020 Instruction Type:Patient Education How to access health informa tion online - Detail Indication:Nonsmoker Start:30-Jul-2020 Instruction Type:Patient Education Patient Instructions Indication:Nonsmoker Start:30-Jul-2020 Instruction Type:Provider Instructions for Treatment [facility]; [facility] Work Phone: Instructions* Name Dates Details Patient Instructions Indication:BMI 35.0-35.9,adult Start:27-Dec-2021 Instruction Type:Provider Instructions for Treatment How to Access Health Informa tion Online using Patient Portal and [employer]rd [employer] Apps Indication:Nonsmoker Start:27-Dec-2021 Instruction Type:Patient Education Patient Instructions Indication:BMI 35.0-35.9,adult Start:19-Nov-2021 Instruction Type:Provider Instructions for Treatment How to Access Health Informa tion Online using Patient Portal and [employer]rd [employer] Apps Indication:BMI 35.0-35.9,adult Start:19-Nov-2021 Instruction Type:Patient Education Patient Instructions Indication:BMI 35.0-35.9,adult Start:07-Aug-2021 Instruction Type:Provider Instructions for Treatment How to Access Health Informa tion Online using Patient Portal and [employer] Apps Indication:BMI 35.0-35.9,adult Start:07-Aug-2021 Instruction Type:Patient Education Patient Instructions Indication:Encounter for screening for malignant neoplasm of prostate (Renamed from Screening for prostate cancer) Start:20-Mar-2021 Instruction Type:Provider Instructions for Treatment How to Access Health Informa tion Online using Patient Portal and [employer] Apps Indication:Nonsmoker Start:20-Mar-2021 Instruction Type:Patient Education Patient Instructions Indication:History of artificial skin graft Start:21-Dec-2020 Instruction Type:Provider Instructions for Treatment How to Access Health Informa tion Online using Patient Portal and [employer] Apps Indication:Nonsmoker Start:21-Dec-2020 Instruction Type:Patient Education How to access health informa tion online Indication:Nonsmoker Start:04-Sep-2020 Instruction Type:Patient Education How to access health informa tion online - Detail Indication:Nonsmoker Start:04-Sep-2020 Instruction Type:Patient Education Patient Instructions Indication:Neck pain Start:04-Sep-2020 Instruction Type:Provider Instructions for Treatment How to access health informa tion online Indication:Nonsmoker Start:30-Jul-2020 Instruction Type:Patient Education How to access health informa tion online - Detail Indication:Nonsmoker Start:30-Jul-2020 Instruction Type:Patient Education Patient Instructions Indication:Nonsmoker Start:30-Jul-2020 Instruction Type:Provider Instructions for Treatment [facility]; [facility] Work Phone: Instructions* Name Dates Details Patient Instructions Indication:Former smoker Start:05-Aug-2022 Instruction Type:Provider Instructions for Treatment How to Access Health Informa tion Online using Patient Portal and [employer]rd [employer] Apps Indication:Former smoker Start:05-Aug-2022 Instruction Type:Patient Education Patient Instructions Indication:BMI 35.0-35.9,adult Start:27-Dec-2021 Instruction Type:Provider Instructions for Treatment How to Access Health Informa tion Online using Patient Portal and [employer]rd [employer] Apps Indication:Nonsmoker Start:27-Dec-2021 Instruction Type:Patient Education Patient Instructions Indication:BMI 35.0-35.9,adult Start:19-Nov-2021 Instruction Type:Provider Instructions for Treatment How to Access Health Informa tion Online using Patient Portal and [employer]rd [employer] Apps Indication:BMI 35.0-35.9,adult Start:19-Nov-2021 Instruction Type:Patient Education Patient Instructions Indication:BMI 35.0-35.9,adult Start:07-Aug-2021 Instruction Type:Provider Instructions for Treatment How to Access Health Informa tion Online using Patient Portal and [employer]rd [employer] Apps Indication:BMI 35.0-35.9,adult Start:07-Aug-2021 Instruction Type:Patient Education Patient Instructions Indication:Encounter for screening for malignant neoplasm of prostate (Renamed from Screening for prostate cancer) Start:20-Mar-2021 Instruction Type:Provider Instructions for Treatment How to Access Health Informa tion Online using Patient Portal and [employer]rd [employer] Apps Indication:Nonsmoker Start:20-Mar-2021 Instruction Type:Patient Education Patient Instructions Indication:History of artificial skin graft Start:21-Dec-2020 Instruction Type:Provider Instructions for Treatment How to Access Health Informa tion Online using Patient Portal and [employer]rd [employer] Apps Indication:Nonsmoker Start:21-Dec-2020 Instruction Type:Patient Education How to access health informa tion online Indication:Nonsmoker Start:04-Sep-2020 Instruction Type:Patient Education How to access health informa tion online - Detail Indication:Nonsmoker Start:04-Sep-2020 Instruction Type:Patient Education Patient Instructions Indication:Neck pain Start:04-Sep-2020 Instruction Type:Provider Instructions for Treatment How to access health informa tion online Indication:Nonsmoker Start:30-Jul-2020 Instruction Type:Patient Education How to access health informa tion online - Detail Indication:Nonsmoker Start:30-Jul-2020 Instruction Type:Patient Education Patient Instructions Indication:Nonsmoker Start:30-Jul-2020 Instruction Type:Provider Instructions for Treatment [facility]; [facility] Work Phone: Instructions* Name Dates Details Patient Instructions Indication:Former smoker Start:09-Sep-2022 Instruction Type:Provider Instructions for Treatment How to Access Health Informa tion Online using Patient Portal and [employer]rd [employer] Apps Indication:Former smoker Start:09-Sep-2022 Instruction Type:Patient Education Patient Instructions Indication:Former smoker Start:05-Aug-2022 Instruction Type:Provider Instructions for Treatment How to Access Health Informa tion Online using Patient Portal and [employer] Apps Indication:Former smoker Start:05-Aug-2022 Instruction Type:Patient Education Patient Instructions Indication:BMI 35.0-35.9,adult Start:27-Dec-2021 Instruction Type:Provider Instructions for Treatment How to Access Health Informa tion Online using Patient Portal and [employer] Apps Indication:Nonsmoker Start:27-Dec-2021 Instruction Type:Patient Education Patient Instructions Indication:BMI 35.0-35.9,adult Start:19-Nov-2021 Instruction Type:Provider Instructions for Treatment How to Access Health Informa tion Online using Patient Portal and [employer]rd [employer] Apps Indication:BMI 35.0-35.9,adult Start:19-Nov-2021 Instruction Type:Patient Education Patient Instructions Indication:BMI 35.0-35.9,adult Start:07-Aug-2021 Instruction Type:Provider Instructions for Treatment How to Access Health Informa tion Online using Patient Portal and [employer]rd [employer] Apps Indication:BMI 35.0-35.9,adult Start:07-Aug-2021 Instruction Type:Patient Education Patient Instructions Indication:Encounter for screening for malignant neoplasm of prostate (Renamed from Screening for prostate cancer) Start:20-Mar-2021 Instruction Type:Provider Instructions for Treatment How to Access Health Informa tion Online using Patient Portal and [employer]rd [employer] Apps Indication:Nonsmoker Start:20-Mar-2021 Instruction Type:Patient Education Patient Instructions Indication:History of artificial skin graft Start:21-Dec-2020 Instruction Type:Provider Instructions for Treatment How to Access Health Informa tion Online using Patient Portal and [employer] Apps Indication:Nonsmoker Start:21-Dec-2020 Instruction Type:Patient Education How to access health informa tion online Indication:Nonsmoker Start:04-Sep-2020 Instruction Type:Patient Education How to access health informa tion online - Detail Indication:Nonsmoker Start:04-Sep-2020 Instruction Type:Patient Education Patient Instructions Indication:Neck pain Start:04-Sep-2020 Instruction Type:Provider Instructions for Treatment How to access health informa tion online Indication:Nonsmoker Start:30-Jul-2020 Instruction Type:Patient Education How to access health informa tion online - Detail Indication:Nonsmoker Start:30-Jul-2020 Instruction Type:Patient Education Patient Instructions Indication:Nonsmoker Start:30-Jul-2020 Instruction Type:Provider Instructions for Treatment [facility]; [facility] Work Phone: Instructions* Name Dates Details Patient Instructions Indication:Former smoker Start:09-Sep-2022 Instruction Type:Provider Instructions for Treatment How to Access Health Informa tion Online using Patient Portal and [employer] Apps Indication:Former smoker Start:09-Sep-2022 Instruction Type:Patient Education Patient Instructions Indication:Former smoker Start:05-Aug-2022 Instruction Type:Provider Instructions for Treatment How to Access Health Informa tion Online using Patient Portal and [employer] Apps Indication:Former smoker Start:05-Aug-2022 Instruction Type:Patient Education Patient Instructions Indication:BMI 35.0-35.9,adult Start:27-Dec-2021 Instruction Type:Provider Instructions for Treatment How to Access Health Informa tion Online using Patient Portal and [employer]rd [employer] Apps Indication:Nonsmoker Start:27-Dec-2021 Instruction Type:Patient Education Patient Instructions Indication:BMI 35.0-35.9,adult Start:19-Nov-2021 Instruction Type:Provider Instructions for Treatment How to Access Health Informa tion Online using Patient Portal and [employer] Apps Indication:BMI 35.0-35.9,adult Start:19-Nov-2021 Instruction Type:Patient Education Patient Instructions Indication:BMI 35.0-35.9,adult Start:07-Aug-2021 Instruction Type:Provider Instructions for Treatment How to Access Health Informa tion Online using Patient Portal and [employer]rd [employer] Apps Indication:BMI 35.0-35.9,adult Start:07-Aug-2021 Instruction Type:Patient Education Patient Instructions Indication:Encounter for screening for malignant neoplasm of prostate (Renamed from Screening for prostate cancer) Start:20-Mar-2021 Instruction Type:Provider Instructions for Treatment How to Access Health Informa tion Online using Patient Portal and [employer]rd [employer] Apps Indication:Nonsmoker Start:20-Mar-2021 Instruction Type:Patient Education Patient Instructions Indication:History of artificial skin graft Start:21-Dec-2020 Instruction Type:Provider Instructions for Treatment How to Access Health Informa tion Online using Patient Portal and [employer] Apps Indication:Nonsmoker Start:21-Dec-2020 Instruction Type:Patient Education How to access health informa tion online Indication:Nonsmoker Start:04-Sep-2020 Instruction Type:Patient Education How to access health informa tion online - Detail Indication:Nonsmoker Start:04-Sep-2020 Instruction Type:Patient Education Patient Instructions Indication:Neck pain Start:04-Sep-2020 Instruction Type:Provider Instructions for Treatment How to access health informa tion online Indication:Nonsmoker Start:30-Jul-2020 Instruction Type:Patient Education How to access health informa tion online - Detail Indication:Nonsmoker Start:30-Jul-2020 Instruction Type:Patient Education Patient Instructions Indication:Nonsmoker Start:30-Jul-2020 Instruction Type:Provider Instructions for Treatment [facility]; [facility] Work Phone: Instructions* Name Dates Details Patient Instructions Indication:Stage 1 hypertension Start:04-Feb-2023 Instruction Type:Provider Instructions for Treatment How to Access Health Informa tion Online using Patient Portal and [employer]rd [employer] Apps Indication:Stage 1 hypertension Start:04-Feb-2023 Instruction Type:Patient Education Patient Instructions Indication:Former smoker Start:09-Sep-2022 Instruction Type:Provider Instructions for Treatment How to Access Health Informa tion Online using Patient Portal and [employer] Apps Indication:Former smoker Start:09-Sep-2022 Instruction Type:Patient Education Patient Instructions Indication:Former smoker Start:05-Aug-2022 Instruction Type:Provider Instructions for Treatment How to Access Health Informa tion Online using Patient Portal and [employer] Apps Indication:Former smoker Start:05-Aug-2022 Instruction Type:Patient Education Patient Instructions Indication:BMI 35.0-35.9,adult Start:27-Dec-2021 Instruction Type:Provider Instructions for Treatment How to Access Health Informa tion Online using Patient Portal and [employer]rd [employer] Apps Indication:Nonsmoker Start:27-Dec-2021 Instruction Type:Patient Education Patient Instructions Indication:BMI 35.0-35.9,adult Start:19-Nov-2021 Instruction Type:Provider Instructions for Treatment How to Access Health Informa tion Online using Patient Portal and [employer] Apps Indication:BMI 35.0-35.9,adult Start:19-Nov-2021 Instruction Type:Patient Education Patient Instructions Indication:BMI 35.0-35.9,adult Start:07-Aug-2021 Instruction Type:Provider Instructions for Treatment How to Access Health Informa tion Online using Patient Portal and [employer]rd [employer] Apps Indication:BMI 35.0-35.9,adult Start:07-Aug-2021 Instruction Type:Patient Education Patient Instructions Indication:Encounter for screening for malignant neoplasm of prostate (Renamed from Screening for prostate cancer) Start:20-Mar-2021 Instruction Type:Provider Instructions for Treatment How to Access Health Informa tion Online using Patient Portal and [employer] Apps Indication:Nonsmoker Start:20-Mar-2021 Instruction Type:Patient Education Patient Instructions Indication:History of artificial skin graft Start:21-Dec-2020 Instruction Type:Provider Instructions for Treatment How to Access Health Informa tion Online using Patient Portal and [employer] Apps Indication:Nonsmoker Start:21-Dec-2020 Instruction Type:Patient Education How to access health informa tion online Indication:Nonsmoker Start:04-Sep-2020 Instruction Type:Patient Education How to access health informa tion online - Detail Indication:Nonsmoker Start:04-Sep-2020 Instruction Type:Patient Education Patient Instructions Indication:Neck pain Start:04-Sep-2020 Instruction Type:Provider Instructions for Treatment How to access health informa tion online Indication:Nonsmoker Start:30-Jul-2020 Instruction Type:Patient Education How to access health informa tion online - Detail Indication:Nonsmoker Start:30-Jul-2020 Instruction Type:Patient Education Patient Instructions Indication:Nonsmoker Start:30-Jul-2020 Instruction Type:Provider Instructions for Treatment [facility]; [facility] Work Phone: Instructions* Name Dates Details Patient Instructions Indication:Stage 1 hypertension Start:04-Feb-2023 Instruction Type:Provider Instructions for Treatment How to Access Health Informa tion Online using Patient Portal and [employer]rd [employer] Apps Indication:Stage 1 hypertension Start:04-Feb-2023 Instruction Type:Patient Education Patient Instructions Indication:Former smoker Start:09-Sep-2022 Instruction Type:Provider Instructions for Treatment How to Access Health Informa tion Online using Patient Portal and [employer] Apps Indication:Former smoker Start:09-Sep-2022 Instruction Type:Patient Education Patient Instructions Indication:Former smoker Start:05-Aug-2022 Instruction Type:Provider Instructions for Treatment How to Access Health Informa tion Online using Patient Portal and [employer] Apps Indication:Former smoker Start:05-Aug-2022 Instruction Type:Patient Education Patient Instructions Indication:BMI 35.0-35.9,adult Start:27-Dec-2021 Instruction Type:Provider Instructions for Treatment How to Access Health Informa tion Online using Patient Portal and [employer] Apps Indication:Nonsmoker Start:27-Dec-2021 Instruction Type:Patient Education Patient Instructions Indication:BMI 35.0-35.9,adult Start:19-Nov-2021 Instruction Type:Provider Instructions for Treatment How to Access Health Informa tion Online using Patient Portal and [employer] Apps Indication:BMI 35.0-35.9,adult Start:19-Nov-2021 Instruction Type:Patient Education Patient Instructions Indication:BMI 35.0-35.9,adult Start:07-Aug-2021 Instruction Type:Provider Instructions for Treatment How to Access Health Informa tion Online using Patient Portal and [employer] Apps Indication:BMI 35.0-35.9,adult Start:07-Aug-2021 Instruction Type:Patient Education Patient Instructions Indication:Encounter for screening for malignant neoplasm of prostate (Renamed from Screening for prostate cancer) Start:20-Mar-2021 Instruction Type:Provider Instructions for Treatment How to Access Health Informa tion Online using Patient Portal and [employer] Apps Indication:Nonsmoker Start:20-Mar-2021 Instruction Type:Patient Education Patient Instructions Indication:History of artificial skin graft Start:21-Dec-2020 Instruction Type:Provider Instructions for Treatment How to Access Health Informa tion Online using Patient Portal and [employer] Apps Indication:Nonsmoker Start:21-Dec-2020 Instruction Type:Patient Education How to access health informa tion online Indication:Nonsmoker Start:04-Sep-2020 Instruction Type:Patient Education How to access health informa tion online - Detail Indication:Nonsmoker Start:04-Sep-2020 Instruction Type:Patient Education Patient Instructions Indication:Neck pain Start:04-Sep-2020 Instruction Type:Provider Instructions for Treatment How to access health informa tion online Indication:Nonsmoker Start:30-Jul-2020 Instruction Type:Patient Education How to access health informa tion online - Detail Indication:Nonsmoker Start:30-Jul-2020 Instruction Type:Patient Education Patient Instructions Indication:Nonsmoker Start:30-Jul-2020 Instruction Type:Provider Instructions for Treatment [facility]; [facility] Work Phone: Instructions* Name Dates Details Patient Instructions Indication:Stage 1 hypertension Start:04-Feb-2023 Instruction Type:Provider Instructions for Treatment How to Access Health Informa tion Online using Patient Portal and [employer] Apps Indication:Stage 1 hypertension Start:04-Feb-2023 Instruction Type:Patient Education Patient Instructions Indication:Former smoker Start:09-Sep-2022 Instruction Type:Provider Instructions for Treatment How to Access Health Informa tion Online using Patient Portal and [employer] Apps Indication:Former smoker Start:09-Sep-2022 Instruction Type:Patient Education Patient Instructions Indication:Former smoker Start:05-Aug-2022 Instruction Type:Provider Instructions for Treatment How to Access Health Informa tion Online using Patient Portal and [employer] Apps Indication:Former smoker Start:05-Aug-2022 Instruction Type:Patient Education Patient Instructions Indication:BMI 35.0-35.9,adult Start:27-Dec-2021 Instruction Type:Provider Instructions for Treatment How to Access Health Informa tion Online using Patient Portal and [employer] Apps Indication:Nonsmoker Start:27-Dec-2021 Instruction Type:Patient Education Patient Instructions Indication:BMI 35.0-35.9,adult Start:19-Nov-2021 Instruction Type:Provider Instructions for Treatment How to Access Health Informa tion Online using Patient Portal and [employer] Apps Indication:BMI 35.0-35.9,adult Start:19-Nov-2021 Instruction Type:Patient Education Patient Instructions Indication:BMI 35.0-35.9,adult Start:07-Aug-2021 Instruction Type:Provider Instructions for Treatment How to Access Health Informa tion Online using Patient Portal and [employer]rd [employer] Apps Indication:BMI 35.0-35.9,adult Start:07-Aug-2021 Instruction Type:Patient Education Patient Instructions Indication:Encounter for screening for malignant neoplasm of prostate (Renamed from Screening for prostate cancer) Start:20-Mar-2021 Instruction Type:Provider Instructions for Treatment How to Access Health Informa tion Online using Patient Portal and [employer] Apps Indication:Nonsmoker Start:20-Mar-2021 Instruction Type:Patient Education Patient Instructions Indication:History of artificial skin graft Start:21-Dec-2020 Instruction Type:Provider Instructions for Treatment How to Access Health Informa tion Online using Patient Portal and [employer] Apps Indication:Nonsmoker Start:21-Dec-2020 Instruction Type:Patient Education How to access health informa tion online Indication:Nonsmoker Start:04-Sep-2020 Instruction Type:Patient Education How to access health informa tion online - Detail Indication:Nonsmoker Start:04-Sep-2020 Instruction Type:Patient Education Patient Instructions Indication:Neck pain Start:04-Sep-2020 Instruction Type:Provider Instructions for Treatment How to access health informa tion online Indication:Nonsmoker Start:30-Jul-2020 Instruction Type:Patient Education How to access health informa tion online - Detail Indication:Nonsmoker Start:30-Jul-2020 Instruction Type:Patient Education Patient Instructions Indication:Nonsmoker Start:30-Jul-2020 Instruction Type:Provider Instructions for Treatment [facility]; [facility] Work Phone: Instructions* Name Dates Details Patient Instructions Indication:BMI 37.0-37.9, adult (Renamed from Body mass index (BMI) of 37.0 to 37.9 in adult) Start:07-Aug-2023 Instruction Type:Provider Instructions for Treatment How to Access Health Informa tion Online using Patient Portal and [employer] Apps Indication:BMI 37.0-37.9, adult (Renamed from Body mass index (BMI) of 37.0 to 37.9 in adult) Start:07-Aug-2023 Instruction Type:Patient Education Patient Instructions Indication:Stage 1 hypertension Start:04-Feb-2023 Instruction Type:Provider Instructions for Treatment How to Access Health Informa tion Online using Patient Portal and [employer] Apps Indication:Stage 1 hypertension Start:04-Feb-2023 Instruction Type:Patient Education Patient Instructions Indication:Former smoker Start:09-Sep-2022 Instruction Type:Provider Instructions for Treatment How to Access Health Informa tion Online using Patient Portal and [employer] Apps Indication:Former smoker Start:09-Sep-2022 Instruction Type:Patient Education Patient Instructions Indication:Former smoker Start:05-Aug-2022 Instruction Type:Provider Instructions for Treatment How to Access Health Informa tion Online using Patient Portal and [employer] Apps Indication:Former smoker Start:05-Aug-2022 Instruction Type:Patient Education Patient Instructions Indication:BMI 35.0-35.9,adult Start:27-Dec-2021 Instruction Type:Provider Instructions for Treatment How to Access Health Informa tion Online using Patient Portal and [employer] Apps Indication:Nonsmoker Start:27-Dec-2021 Instruction Type:Patient Education Patient Instructions Indication:BMI 35.0-35.9,adult Start:19-Nov-2021 Instruction Type:Provider Instructions for Treatment How to Access Health Informa tion Online using Patient Portal and [employer] Apps Indication:BMI 35.0-35.9,adult Start:19-Nov-2021 Instruction Type:Patient Education Patient Instructions Indication:BMI 35.0-35.9,adult Start:07-Aug-2021 Instruction Type:Provider Instructions for Treatment How to Access Health Informa tion Online using Patient Portal and [employer] Apps Indication:BMI 35.0-35.9,adult Start:07-Aug-2021 Instruction Type:Patient Education Patient Instructions Indication:Encounter for screening for malignant neoplasm of prostate (Renamed from Screening for prostate cancer) Start:20-Mar-2021 Instruction Type:Provider Instructions for Treatment How to Access Health Informa tion Online using Patient Portal and [employer] Apps Indication:Nonsmoker Start:20-Mar-2021 Instruction Type:Patient Education Patient Instructions Indication:History of artificial skin graft Start:21-Dec-2020 Instruction Type:Provider Instructions for Treatment How to Access Health Informa tion Online using Patient Portal and [employer] Apps Indication:Nonsmoker Start:21-Dec-2020 Instruction Type:Patient Education How to access health informa tion online Indication:Nonsmoker Start:04-Sep-2020 Instruction Type:Patient Education How to access health informa tion online - Detail Indication:Nonsmoker Start:04-Sep-2020 Instruction Type:Patient Education Patient Instructions Indication:Neck pain Start:04-Sep-2020 Instruction Type:Provider Instructions for Treatment How to access health informa tion online Indication:Nonsmoker Start:30-Jul-2020 Instruction Type:Patient Education How to access health informa tion online - Detail Indication:Nonsmoker Start:30-Jul-2020 Instruction Type:Patient Education Patient Instructions Indication:Nonsmoker Start:30-Jul-2020 Instruction Type:Provider Instructions for Treatment [facility]; [facility] Work Phone: Instructions* Name Dates Details Patient Instructions Indication:BMI 37.0-37.9, adult (Renamed from Body mass index (BMI) of 37.0 to 37.9 in adult) Start:07-Aug-2023 Instruction Type:Provider Instructions for Treatment How to Access Health Informa tion Online using Patient Portal and [employer] Apps Indication:BMI 37.0-37.9, adult (Renamed from Body mass index (BMI) of 37.0 to 37.9 in adult) Start:07-Aug-2023 Instruction Type:Patient Education Patient Instructions Indication:Stage 1 hypertension Start:04-Feb-2023 Instruction Type:Provider Instructions for Treatment How to Access Health Informa tion Online using Patient Portal and [employer]rd [employer] Apps Indication:Stage 1 hypertension Start:04-Feb-2023 Instruction Type:Patient Education Patient Instructions Indication:Former smoker Start:09-Sep-2022 Instruction Type:Provider Instructions for Treatment How to Access Health Informa tion Online using Patient Portal and [employer]rd [employer] Apps Indication:Former smoker Start:09-Sep-2022 Instruction Type:Patient Education Patient Instructions Indication:Former smoker Start:05-Aug-2022 Instruction Type:Provider Instructions for Treatment How to Access Health Informa tion Online using Patient Portal and [employer]rd [employer] Apps Indication:Former smoker Start:05-Aug-2022 Instruction Type:Patient Education Patient Instructions Indication:BMI 35.0-35.9,adult Start:27-Dec-2021 Instruction Type:Provider Instructions for Treatment How to Access Health Informa tion Online using Patient Portal and 3rd [employer] Apps Indication:Nonsmoker Start:27-Dec-2021 Instruction Type:Patient Education Patient Instructions Indication:BMI 35.0-35.9,adult Start:19-Nov-2021 Instruction Type:Provider Instructions for Treatment How to Access Health Informa tion Online using Patient Portal and 3rd [employer] Apps Indication:BMI 35.0-35.9,adult Start:19-Nov-2021 Instruction Type:Patient Education Patient Instructions Indication:BMI 35.0-35.9,adult Start:07-Aug-2021 Instruction Type:Provider Instructions for Treatment How to Access Health Informa tion Online using Patient Portal and 3rd [employer] Apps Indication:BMI 35.0-35.9,adult Start:07-Aug-2021 Instruction Type:Patient Education Patient Instructions Indication:Encounter for screening for malignant neoplasm of prostate (Renamed from Screening for prostate cancer) Start:20-Mar-2021 Instruction Type:Provider Instructions for Treatment How to Access Health Informa tion Online using Patient Portal and 3rd [employer] Apps Indication:Nonsmoker Start:20-Mar-2021 Instruction Type:Patient Education Patient Instructions Indication:History of artificial skin graft Start:21-Dec-2020 Instruction Type:Provider Instructions for Treatment How to Access Health Informa tion Online using Patient Portal and [employer] Apps Indication:Nonsmoker Start:21-Dec-2020 Instruction Type:Patient Education How to access health informa tion online Indication:Nonsmoker Start:04-Sep-2020 Instruction Type:Patient Education How to access health informa tion online - Detail Indication:Nonsmoker Start:04-Sep-2020 Instruction Type:Patient Education Patient Instructions Indication:Neck pain Start:04-Sep-2020 Instruction Type:Provider Instructions for Treatment How to access health informa tion online Indication:Nonsmoker Start:30-Jul-2020 Instruction Type:Patient Education How to access health informa tion online - Detail Indication:Nonsmoker Start:30-Jul-2020 Instruction Type:Patient Education Patient Instructions Indication:Nonsmoker Start:30-Jul-2020 Instruction Type:Provider Instructions for Treatment [facility] Work Phone: reason for referral (narrative)No reason for referral information availableR[facility] Work Phone: Reason for visit Narrative* Imaging (Routine) - Pending Review Specialty Diagnoses / Procedures Referred By Pily lopez Referred To Contact Radiology Diagnoses Pure hypercholesterolemia, unspecified Procedures CT cardiac scoring wo IV contrast Lissa Meade, [employer] INSTALLER-HEARING SPECIALIST [address] [place] [address] Phone: tel: fax: Referral ID Status Reason Start Date Expiration Date Visits Requested Visits Authorized [id number] Pending Review Perform Procedure 4 08/19/2025 1 1 [facility] Work Phone: Family History No Family History Records FoundUnknown Family Member Name Dates Details Father Comments:Blood disorder, DM, 1 stint placement, high chol Status:Active Unknown Family Member Name Dates Details Father Comments:Blood disorder, DM, 1 stint placement, high chol Status:Active Unknown Family Member Name Dates Details Father Comments:Blood disorder, DM, 1 stint placement, high chol Status:Active Unknown Family Member Name Dates Details Father Comments:Blood disorder, DM, 1 stint placement, high chol Status:Active Unknown Family Member Name Dates Details Father Comments:Blood disorder, DM, 1 stint placement, high chol Status:Active Unknown Family Member Name Dates Details Father Comments:Blood disorder, DM, 1 stint placement, high chol Status:Active Unknown Family Member Name Dates Details Father Comments:Blood disorder, DM, 1 stint placement, high chol Status:Active Unknown Family Member Name Dates Details Father Comments:Blood disorder, DM, 1 stint placement, high chol Status:Active Unknown Family Member Name Dates Details Father Comments:Blood disorder, DM, 1 stint placement, high chol Status:Active Unknown Family Member Name Dates Details Father Comments:Blood disorder, DM, 1 stint placement, high chol Status:Active Unknown Family Member Name Dates Details Father Comments:Blood disorder, DM, 1 stint placement, high chol Status:Active Unknown Family Member Name Dates Details Father Comments:Blood disorder, DM, 1 stint placement, high chol Status:Active Unknown Family Member Name Dates Details Father Comments:Blood disorder, DM, 1 stint placement, high chol Status:Active Unknown Family Member Name Dates Details Father Comments:Blood disorder, DM, 1 stint placement, high chol Status:Active Unknown Family Member Name Dates Details Father Comments:Blood disorder, DM, 1 stint placement, high chol Status:Active Unknown Family Member Name Dates Details Father Comments:Blood disorder, DM, 1 stint placement, high chol Status:Active Unknown Family Member Name Dates Details Father Comments:Blood disorder, DM, 1 stint placement, high chol Status:Active Unknown Family Member Name Dates Details Father Comments:Blood disorder, DM, 1 stint placement, high chol Status:Active Unknown Family Member Name Dates Details Father Comments:Blood disorder, DM, 1 stint placement, high chol Status:Active Unknown Family Member Name Dates Details Father Comments:Blood disorder, DM, 1 stint placement, high chol Status:Active Unknown Family Member Name Dates Details Father Comments:Blood disorder, DM, 1 stint placement, high chol Status:Active Unknown Family Member Name Dates Details Father Comments:Blood disorder, DM, 1 stint placement, high chol Status:Active Unknown Family Member Name Dates Details Father Comments:Blood disorder, DM, 1 stint placement, high chol Status:Active Unknown Family Member Name Dates Details Father Comments:Blood disorder, DM, 1 stint placement, high chol Status:Active Unknown Family Member Name Dates Details Father Comments:Blood disorder, DM, 1 stint placement, high chol Status:Active Instructions Name Dates Details How to access health informa tion online Indication:Nonsmoker Start:30-Jul-2020 Instruction Type:Patient Education How to access health informa tion online - Detail Indication:Nonsmoker Start:30-Jul-2020 Instruction Type:Patient Education Patient Instructions Indication:Nonsmoker Start:30-Jul-2020 Instruction Type:Provider Instructions for Treatment Name Dates Details How to access health informa tion online Indication:Nonsmoker Start:30-Jul-2020 Instruction Type:Patient Education How to access health informa tion online - Detail Indication:Nonsmoker Start:30-Jul-2020 Instruction Type:Patient Education Patient Instructions Indication:Nonsmoker Start:30-Jul-2020 Instruction Type:Provider Instructions for Treatment Name Dates Details How to access health informa tion online Indication:Nonsmoker Start:30-Jul-2020 Instruction Type:Patient Education How to access health informa tion online - Detail Indication:Nonsmoker Start:30-Jul-2020 Instruction Type:Patient Education Patient Instructions Indication:Nonsmoker Start:30-Jul-2020 Instruction Type:Provider Instructions for Treatment Name Dates Details How to access health informa tion online Indication:Nonsmoker Start:30-Jul-2020 Instruction Type:Patient Education How to access health informa tion online - Detail Indication:Nonsmoker Start:30-Jul-2020 Instruction Type:Patient Education Patient Instructions Indication:Nonsmoker Start:30-Jul-2020 Instruction Type:Provider Instructions for Treatment Name Dates Details How to access health informa tion online Indication:Nonsmoker Start:04-Sep-2020 Instruction Type:Patient Education How to access health informa tion online - Detail Indication:Nonsmoker Start:04-Sep-2020 Instruction Type:Patient Education Patient Instructions Indication:Nonsmoker Start:04-Sep-2020 Instruction Type:Provider Instructions for Treatment How to access health informa tion online Indication:Nonsmoker Start:30-Jul-2020 Instruction Type:Patient Education How to access health informa tion online - Detail Indication:Nonsmoker Start:30-Jul-2020 Instruction Type:Patient Education Patient Instructions Indication:Nonsmoker Start:30-Jul-2020 Instruction Type:Provider Instructions for Treatment Name Dates Details How to access health informa tion online Indication:Nonsmoker Start:04-Sep-2020 Instruction Type:Patient Education How to access health informa tion online - Detail Indication:Nonsmoker Start:04-Sep-2020 Instruction Type:Patient Education Patient Instructions Indication:Neck pain Start:04-Sep-2020 Instruction Type:Provider Instructions for Treatment How to access health informa tion online Indication:Nonsmoker Start:30-Jul-2020 Instruction Type:Patient Education How to access health informa tion online - Detail Indication:Nonsmoker Start:30-Jul-2020 Instruction Type:Patient Education Patient Instructions Indication:Nonsmoker Start:30-Jul-2020 Instruction Type:Provider Instructions for Treatment Name Dates Details Patient Instructions Indication:History of artificial skin graft Start:21-Dec-2020 Instruction Type:Provider Instructions for Treatment How to Access Health Informa tion Online using Patient Portal and [employer] Apps Indication:Nonsmoker Start:21-Dec-2020 Instruction Type:Patient Education How to access health informa tion online Indication:Nonsmoker Start:04-Sep-2020 Instruction Type:Patient Education How to access health informa tion online - Detail Indication:Nonsmoker Start:04-Sep-2020 Instruction Type:Patient Education Patient Instructions Indication:Neck pain Start:04-Sep-2020 Instruction Type:Provider Instructions for Treatment How to access health informa tion online Indication:Nonsmoker Start:30-Jul-2020 Instruction Type:Patient Education How to access health informa tion online - Detail Indication:Nonsmoker Start:30-Jul-2020 Instruction Type:Patient Education Patient Instructions Indication:Nonsmoker Start:30-Jul-2020 Instruction Type:Provider Instructions for Treatment Name Dates Details How to access health informa tion online Indication:Nonsmoker Start:30-Jul-2020 Instruction Type:Patient Education How to access health informa tion online - Detail Indication:Nonsmoker Start:30-Jul-2020 Instruction Type:Patient Education Patient Instructions Indication:Nonsmoker Start:30-Jul-2020 Instruction Type:Provider Instructions for Treatment Chief Complaint and Reason for Visit Chief Complaint ACUTE CHOLECYSTITIS ACUTE CHOLECYSTITIS ACUTE CHOLECYSTITIS Reason for Visit Acute cholecystitis Cholelithiasis Hypertension Chief Complaint Admit Date 6 M FU July 14, 2025 7:46am Reason for Visit Admit Date Bruxism July 14, 2025 7:46am Hypertension July 14, 2025 7:46am Obstructive sleep apnea July 14, 2025 7:46am Personal history of nicotine dependence July 14, 2025 7:46am Advance Directives No Advanced Directives Records Found Advance Directive Response Recorded Date/ Time Name of Medical Power of Air Brake Worker Tal Garcia August 21, 2022 9:29am Living Will Yes August 21 9:29am Power of Air Brake Worker Yes August 21, 2022 9:29am Summary Purpose Additional Source Comments (unrecognized sect ion and content) No Status Records FoundNo Status Records FoundNo Status Records Found INFORMATION SOURCE (unrecogn ized section and content) DATE CREATED [facility] DATE CREATED AUTHOR AUTHOR'S ORGANIZ ATION 09/27/2024 [facility] DATE CREATED AUTHOR AUTHOR'S ORGANIZ ATION 07/16/2025 [facility] Care Teams (unrecognized sec tion and content) Printing Mechanist Relationship Specialty Start Date End Date Lissa Meade, [employer] INSTALLER-HEARING SPECIALIST [address] [place] [address] PCP - General Family Medicine 09/15/24 Team Status: Active Member Role/Relationship Status Dates Dr. Cherry Tucker MD Family Provider Active [place] Part[place] Primary Care Provider Active Team Status: Inactive Member Role/Relationship Status Dates [place] Part[place] Primary Care Provider Active Start: July 14, 2025 End: July 14, 2025 [place] Part[place] Referring Provider Active Start: July 14, 2025 End: July 14, 2025 [place] Preciado Attending Provider Active Start: July 14, 2025 End: July 14, 2025 Goals (unrecognized section and content) Goals may be documented in a n alternate section FOR RECORDS PERTAINING TO PATIENTS WHO ARE OR HAVE BEEN ENROLLED IN A CHEMICAL DEPENDENCY/SUBSTANCEABUSE PROGRAM, SOME INFORMATION MAY BE OMITTED. This clinical summary was aggregated from multiple sources. Caution should be exercised in using it in the provision of clinical care. This summary normalizes information from multiple sources, and as a consequence, information in this document may materially change the coding, format and clinical context of patient data. In addition, data may be omitted in some cases. CLINICAL DECISIONS SHOULD BE BASED ON THE PRIMARY CLINICAL RECORDS. [employer] provides no warranty or guarantee of the accuracy or completeness of information in this document.
== END | disposition home or self-care (01) ==
LOC: CT 07:10
PROVIDERS: PCP Nurse Practitioner Family; Referring Provider Nurse Practitioner Family; Visit Provider Nurse Practitioner Family
DX: Z87.891 Personal history of nicotine dependence (principal)
CPT/HCPCS: 71271